=== PATIENT | male | born 1995 | race African-American/Black ===

== ENCOUNTER 2018-07-22 19:12 | Inpatient (IN) | payer MEDICAID ==
[~2018-07-22] VITALS: Ht 175.3 cm; Wt 93.9 kg
[~2018-07-22 19:12] MED LIST: ALBUTEROL SULF8.5 GM INH; AZITHROMYCIN250 MG ORAL; PREDNISONE20 MG ORAL
[2018-07-22] MEDS ORDERED: HYDROCHLOROTHIA25 MG ORAL (19:26)
[2018-07-22] MEDS ORDERED: ATORVASTATIN CA40 MG ORAL (19:26)
[2018-07-22] MEDS ORDERED: WELLBUTRIN XL150 MG ORAL (19:26)
[2018-07-22 19:30] VITALS: BP 174/107
[2018-07-22 20:21] LABS: BASOPHILS % (AUTO) 2.1 % (0.0-2.0); HEMATOCRIT 52.9 % (42.0-52.0); HEMOGLOBIN 17.9 G/DL (14.2-18.0); MEAN CORPUSCULAR VOLUME 82 FL (80-99); MONOCYTES % (AUTO) 9.3 % (1.0-10.0); NEUTROPHILS % (AUTO) 60.5 % (45.0-75.0); PLATELET COUNT 245 K/UL (150-450); RED BLOOD COUNT 6.48 M/UL (4.70-6.10); WHITE BLOOD COUNT 11.1 K/UL (4.8-10.8)
[2018-07-22 20:31] LABS: ANION GAP 7 mmol/L (5-15); BLOOD UREA NITROGEN 9 mg/dL (7-18); CALCIUM 10.4 MG/DL (8.5-10.1); CARBON DIOXIDE 32 MMOL/L (21-32); CHLORIDE 98 MMOL/L (98-107); CREATININE 1.1 MG/DL (0.55-1.30); POTASSIUM 3.3 MMOL/L (3.5-5.1); SODIUM 137 MMOL/L (136-145)
[2018-07-22 20:33] LABS: INR 1.1 (0.9-1.1)
[2018-07-22 20:37] LABS: APPEARANCE,URINE CLEAR; BILIRUBIN, URINE NEGATIVE (NEGATIVE); GLUCOSE, URINE (UA) NEGATIVE (NEGATIVE); KETONES,URINE NEGATIVE (NEGATIVE); LEUKOCYTE ESTERASE ,URINE NEGATIVE (NEGATIVE); NITRITE,URINE NEGATIVE (NEGATIVE); PH,URINE 6.5 (4.5-8.0); PROTEIN,URINE 1+ (NEGATIVE); UROBILINOGEN,URINE 1 MG/DL (0.0-1.0)
[2018-07-22 20:39] LABS: COLOR,URINE YELLOW
[2018-07-22 20:40] VITALS: BP 156/99
[2018-07-22 20:44] LABS: ALANINE AMINOTRANSFERASE 44 U/L (12-78); ALBUMIN 4.6 G/DL (3.4-5.0); ALBUMIN/GLOBULIN RATIO 0.9 (1.0-2.7); ALKALINE PHOSPHATASE 91 U/L (46-116); ASPARTATE AMINO TRANSFERASE 20 U/L (15-37); BILIRUBIN,TOTAL 0.6 MG/DL (0.2-1.0); CREATINE KINASE 159 U/L (26-308)
[2018-07-22] MEDS ORDERED: Nitroglycerin 2% oint pkt TOPIC ONE (21:00)
[2018-07-22] MEDS ORDERED: Metoprolol 5mg/5ml Inj IVP SCH (21:00)
--- NOTE | 2018-07-22 21:16 | Emergency Room Report ---
History of Present Illness General Chief Complaint: Hypertension Source: Patient Present Illness HPI Patient presents with palpitations and a strange feeling in his chest. He has a history of hypertension and is under increased stress at this time. He's taking medication and has been compliant according to him. He denies any drugs. Hypertensive medication he takes is hydrochlorothiazide. He also takes hydroxyzine and Klonopin. In addition he takes Wellbutrin. He denies dizziness. There is no orthopnea or edema. He also denies calf pain. No fevers, chills, nausea, vomiting, diarrhea, dysuria, abdominal pain, shortness of breath, visual changes, headache. Patient is on medication for his lipids. Is a family history early cardiac disease but none as young as he is. Allergies: Coded Allergies: No Known Allergies (Unverified , 05/10/14) Patient History Past Medical History: see triage record Social History: Denies: smoking, alcohol use, drug use Social History Narrative from home Reviewed Nursing Documentation: PMH: Agreed; PSxH: Agreed Nursing Documentation-PMH Hx Hypertension: Yes Hx Asthma: Yes Review of Systems All Other Systems: negative except mentioned in HPI Physical Exam Vital Signs Date Time Temp Pulse Resp B/P (MAP) Pulse Ox O2 Delivery O2 Flow Rate FiO2 07/22/18 19:21 98.4 102 12 174/107 97 Room Air Sp02 EP Interpretation: reviewed, normal General Appearance: well appearing, no apparent distress, GCS 15 Head: normocephalic Eyes: bilateral eye normal inspection, bilateral eye PERRL, bilateral eye EOMI ENT: moist mucus membranes Neck: supple Respiratory: chest non-tender, lungs clear, normal breath sounds Cardiovascular #1: regular rate, rhythm, no edema Cardiovascular #2: 2+ radial (L) Gastrointestinal: normal inspection, normal bowel sounds, non tender, no mass, non-distended Musculoskeletal: back normal, gait/station normal, normal range of motion Neurologic: alert, oriented x3, grossly normal Psychiatric: anxious Skin: normal inspection, warm/dry Medical Decision Making Diagnostic Impression: Primary Impression: Hypertension Qualified Codes: I10 - Essential (primary) hypertension Additional Impressions: Elevated troponin Anxiety ER Course Patient presents with anxiety and palpitations with chest discomfort. He denies chest pain per se. Differential includes anxiety, electrolyte imbalance , pulmonary embolus, GERD amongst others. Evaluation will be with EKG and labs. His blood pressure will be monitored and he is placed on a cardiac cath lab manager. EKG without injury. Chest x-ray with normal heart size and no infiltrates. CBC slightly elevated white count. CMP minimally low potassium. Lab called with elevated troponin. Patient treated with aspirin, metoprolol and nitroglycerin paste. Patient denies any chest pain at this time. repeat EKG with NST, rate 88, NSSTTW changes, no STEMI. Elevated troponin is surprising. Discussed possible etiologies with patient and mother. Patient with some anxiety over this news and Ativan ordered. Discussed the need for cardiology consultation. Admit to telemetry . Laboratory Tests Test 07/22/18 20:00 White Blood Count 11.1 K/UL (4.8-10.8) H Red Blood Count 6.48 M/UL (4.70-6.10) H Hemoglobin 17.9 G/DL (14.2-18.0) Hematocrit 52.9 % (42.0-52.0) H Mean Corpuscular Volume 82 FL (80-99) Mean Corpuscular Hemoglobin 27.7 PG (27.0-31.0) Mean Corpuscular Hemoglobin Concent 33.9 G/DL (32.0-36.0) Red Cell Distribution Width 11.0 % (11.6-14.8) L Platelet Count 245 K/UL (150-450) Mean Platelet Volume 8.2 FL (6.5-10.1) Neutrophils (%) (Auto) 60.5 % (45.0-75.0) Lymphocytes (%) (Auto) 27.0 % (20.0-45.0) Monocytes (%) (Auto) 9.3 % (1.0-10.0) Eosinophils (%) (Auto) 1.0 % (0.0-3.0) Basophils (%) (Auto) 2.1 % (0.0-2.0) H Prothrombin Time 11.3 SEC (9.30-11.50) Prothrombin Time INR 1.1 (0.9-1.1) PTT 30 SEC (23-33) Urine Color Yellow Urine Appearance Clear Urine pH 6.5 (4.5-8.0) Urine Specific [place] 1.010 (1.005-1.035) Urine Protein 1+ (NEGATIVE) H Urine Glucose (UA) Negative (NEGATIVE) Urine Ketones Negative (NEGATIVE) Urine Blood 2+ (NEGATIVE) H Urine Nitrite Negative (NEGATIVE) Urine Bilirubin Negative (NEGATIVE) Urine Urobilinogen 1 MG/DL (0.0-1.0) H Urine Leukocyte Esterase Negative (NEGATIVE) Urine RBC 2-4 /HPF (0 - 0) H Urine WBC 2-4 /HPF (0 - 0) Urine Squamous Epithelial Cells None /LPF (NONE/OCC) Urine Bacteria Few /HPF (NONE) Urine Yeast Few /HPF (NONE) H Sodium Level 137 MMOL/L (136-145) Potassium Level 3.3 MMOL/L (3.5-5.1) L Chloride Level 98 MMOL/L (98-107) Carbon Dioxide Level 32 MMOL/L (21-32) Anion Gap 7 mmol/L (5-15) Blood Urea Nitrogen 9 mg/dL (7-18) Creatinine 1.1 MG/DL (0.55-1.30) Estimate Glomerular Filtration Rate > 60 mL/min (>60) Glucose Level 114 MG/DL (74-106) H Calcium Level 10.4 MG/DL (8.5-10.1) H Total Bilirubin 0.6 MG/DL (0.2-1.0) Aspartate Amino Transferase (AST) 20 U/L (15-37) Alanine Aminotransferase (ALT) 44 U/L (12-78) Alkaline Phosphatase 91 U/L (46-116) Total Creatine Kinase 159 U/L (26-308) Troponin I 0.106 ng/mL (0.000-0.056) Pro-B-Type Natriuretic Peptide 5 pg/mL (0-125) Total Protein 9.5 G/DL (6.4-8.2) H Albumin 4.6 G/DL (3.4-5.0) Globulin 4.9 g/dL Albumin/Globulin Ratio 0.9 (1.0-2.7) L Urine Opiates Screen Negative (NEGATIVE) Urine Barbiturates Screen Negative (NEGATIVE) Phencyclidine (PCP) Screen Negative (NEGATIVE) Urine Amphetamines Screen Negative (NEGATIVE) Urine Benzodiazepines Screen Negative (NEGATIVE) Urine Cocaine Screen Negative (NEGATIVE) Urine Marijuana (THC) Screen Negative (NEGATIVE) EKG Diagnostic Results Rate: normal Rhythm: NSR ST Segments: no acute changes - Nonspecific ST-T wav Rhythm Strip Diag. Results EP Interpretation: yes Rhythm: NSR, other - unifocal pvcs rate Chest X-Ray Diagnostic Results Chest X-Ray Diagnostic Results : Chest X-Ray Ordered: Yes Indication: Other EP Interpretation: Yes Interpretation: no consolidation, no effusion, no pneumothorax Impression: No acute disease Electronically Signed by: Electronically signed by Juve Rodriguez MD Last Vital Signs Date Time Temp Pulse Resp B/P (MAP) Pulse Ox O2 Delivery O2 Flow Rate FiO2 07/23/18 00:00 86 07/23/18 00:00 98.6 136/70 (92) 07/22/18 23:34 Room Air 07/22/18 23:20 15 98 Status: improved Disposition: ADMITTED INPATIENT Condition: Serious Referrals: [facility],REFERRING (PCP) Juve Rodriguez MD Jul 22, 2018 21:16
[2018-07-22 22:00] VITALS: BP 134/86
[2018-07-22] MEDS ORDERED: LORazepam 1mg tab ORAL ONE (23:15)
[2018-07-23] VITALS: BP 136/70
[2018-07-23] MEDS ORDERED: Albuterol 90mcg Inhaler 8gm INH PRN (03:45)
[2018-07-23 04:00] VITALS: BP 114/63
[2018-07-23 05:47] LABS: BASOPHILS % (AUTO) 1.3 % (0.0-2.0); HEMATOCRIT 51.7 % (42.0-52.0); HEMOGLOBIN 17.4 G/DL (14.2-18.0); LYMPHOCYTES % (AUTO) 24.4 % (20.0-45.0); MEAN CORPUSCULAR VOLUME 83 FL (80-99); MONOCYTES % (AUTO) 9.1 % (1.0-10.0); NEUTROPHILS % (AUTO) 64.1 % (45.0-75.0); PLATELET COUNT 214 K/UL (150-450); RED BLOOD COUNT 6.22 M/UL (4.70-6.10); RED CELL DISTRIBUTION WIDTH 11.1 % (11.6-14.8); WHITE BLOOD COUNT 8.6 K/UL (4.8-10.8)
[2018-07-23 06:05] LABS: ALANINE AMINOTRANSFERASE 39 U/L (12-78); ALBUMIN 4.3 G/DL (3.4-5.0); ALBUMIN/GLOBULIN RATIO 0.9 (1.0-2.7); ALKALINE PHOSPHATASE 82 U/L (46-116); ANION GAP 9 mmol/L (5-15); ASPARTATE AMINO TRANSFERASE 22 U/L (15-37); BILIRUBIN,TOTAL 0.6 MG/DL (0.2-1.0); BLOOD UREA NITROGEN 8 mg/dL (7-18); CARBON DIOXIDE 32 MMOL/L (21-32); CHLORIDE 97 MMOL/L (98-107); SODIUM 137 MMOL/L (136-145)
[2018-07-23 06:06] LABS: POTASSIUM 2.6 MMOL/L (3.5-5.1)
--- NOTE | 2018-07-23 07:10 | Cardiac Electrophysiology PN ---
Subjective Subjective [id number] Objective Last 24 Hour Vital Signs Date Time Temp Pulse Resp B/P (MAP) Pulse Ox O2 Delivery O2 Flow Rate FiO2 07/23/18 04:50 97.9 07/23/18 04:00 92 07/23/18 04:00 97.9 92 114/63 (80) 07/23/18 00:00 86 07/23/18 00:00 98.6 86 136/70 (92) 07/22/18 23:34 Room Air 07/22/18 23:20 98.3 86 15 134/86 98 Room Air 07/22/18 22:00 98.3 86 15 134/86 98 Room Air 07/22/18 20:58 113 153/94 07/22/18 20:57 153/94 07/22/18 20:40 88 14 156/99 98 Room Air 07/22/18 19:30 98.4 102 12 174/107 97 Room Air 07/22/18 19:30 102 12 Room Air 07/22/18 19:21 98.4 102 12 174/107 97 Room Air Intake and Output 07/22/18 07/23/18 19:00 07:00 Intake Total 180 ml Balance 180 ml Intake Oral 180 ml # Voids 1 # Bowel Movements 1 Laboratory Tests Test 07/22/18 20:00 07/23/18 04:33 07/23/18 06:20 White Blood Count 11.1 K/UL (4.8-10.8) H 8.6 K/UL (4.8-10.8) Red Blood Count 6.48 M/UL (4.70-6.10) H 6.22 M/UL (4.70-6.10) H Hemoglobin 17.9 G/DL (14.2-18.0) 17.4 G/DL (14.2-18.0) Hematocrit 52.9 % (42.0-52.0) H 51.7 % (42.0-52.0) Mean Corpuscular Volume 82 FL (80-99) 83 FL (80-99) Mean Corpuscular Hemoglobin 27.7 PG (27.0-31.0) 28.0 PG (27.0-31.0) Mean Corpuscular Hemoglobin Concent 33.9 G/DL (32.0-36.0) 33.7 G/DL (32.0-36.0) Red Cell Distribution Width 11.0 % (11.6-14.8) L 11.1 % (11.6-14.8) L Platelet Count 245 K/UL (150-450) 214 K/UL (150-450) Mean Platelet Volume 8.2 FL (6.5-10.1) 9.5 FL (6.5-10.1) Neutrophils (%) (Auto) 60.5 % (45.0-75.0) 64.1 % (45.0-75.0) Lymphocytes (%) (Auto) 27.0 % (20.0-45.0) 24.4 % (20.0-45.0) Monocytes (%) (Auto) 9.3 % (1.0-10.0) 9.1 % (1.0-10.0) Eosinophils (%) (Auto) 1.0 % (0.0-3.0) 1.0 % (0.0-3.0) Basophils (%) (Auto) 2.1 % (0.0-2.0) H 1.3 % (0.0-2.0) Prothrombin Time 11.3 SEC (9.30-11.50) Prothromb Time International Ratio 1.1 (0.9-1.1) Activated Partial Thromboplast Time 30 SEC (23-33) Urine Color Yellow Urine Appearance Clear Urine pH 6.5 (4.5-8.0) Urine Specific [place] 1.010 (1.005-1.035) Urine Protein 1+ (NEGATIVE) H Urine Glucose (UA) Negative (NEGATIVE) Urine Ketones Negative (NEGATIVE) Urine Blood 2+ (NEGATIVE) H Urine Nitrite Negative (NEGATIVE) Urine Bilirubin Negative (NEGATIVE) Urine Urobilinogen 1 MG/DL (0.0-1.0) H Urine Leukocyte Esterase Negative (NEGATIVE) Urine RBC 2-4 /HPF (0 - 0) H Urine WBC 2-4 /HPF (0 - 0) Urine Squamous Epithelial Cells None /LPF (NONE/OCC) Urine Bacteria Few /HPF (NONE) Urine Yeast Few /HPF (NONE) H Sodium Level 137 MMOL/L (136-145) 137 MMOL/L (136-145) Potassium Level 3.3 MMOL/L (3.5-5.1) L 2.6 MMOL/L (3.5-5.1) *L 3.0 MMOL/L (3.5-5.1) L Chloride Level 98 MMOL/L (98-107) 97 MMOL/L (98-107) L Carbon Dioxide Level 32 MMOL/L (21-32) 32 MMOL/L (21-32) Anion Gap 7 mmol/L (5-15) 9 mmol/L (5-15) Blood Urea Nitrogen 9 mg/dL (7-18) 8 mg/dL (7-18) Creatinine 1.1 MG/DL (0.55-1.30) 1.0 MG/DL (0.55-1.30) Estimat Glomerular Filtration Rate > 60 mL/min (>60) > 60 mL/min (>60) Glucose Level 114 MG/DL (74-106) H 116 MG/DL (74-106) H Calcium Level 10.4 MG/DL (8.5-10.1) H 10.0 MG/DL (8.5-10.1) Total Bilirubin 0.6 MG/DL (0.2-1.0) 0.6 MG/DL (0.2-1.0) Aspartate Amino Transf (AST/SGOT) 20 U/L (15-37) 22 U/L (15-37) Alanine Aminotransferase (ALT/SGPT) 44 U/L (12-78) 39 U/L (12-78) Alkaline Phosphatase 91 U/L (46-116) 82 U/L (46-116) Total Creatine Kinase 159 U/L (26-308) Troponin I 0.106 ng/mL (0.000-0.056) 0.411 ng/mL (0.000-0.056) Pro-B-Type Natriuretic Peptide 5 pg/mL (0-125) Total Protein 9.5 G/DL (6.4-8.2) H 8.9 G/DL (6.4-8.2) H Albumin 4.6 G/DL (3.4-5.0) 4.3 G/DL (3.4-5.0) Globulin 4.9 g/dL 4.6 g/dL Albumin/Globulin Ratio 0.9 (1.0-2.7) L 0.9 (1.0-2.7) L Urine Opiates Screen Negative (NEGATIVE) Urine Barbiturates Screen Negative (NEGATIVE) Phencyclidine (PCP) Screen Negative (NEGATIVE) Urine Amphetamines Screen Negative (NEGATIVE) Urine Benzodiazepines Screen Negative (NEGATIVE) Urine Cocaine Screen Negative (NEGATIVE) Urine Marijuana (THC) Screen Negative (NEGATIVE) Microbiology Date/Time Source Procedure Growth Status 07/22/18 20:00 Urine,Clean Catch Urine Culture - Preliminary NO GROWTH Resulted Reza Shah MD July 23, 2018 07:10
[2018-07-23] MEDS ORDERED: Heparin 25,000u/D5W 500ml 500 ML IV SCH (07:30)
[2018-07-23 08:00] VITALS: BP 128/77
[2018-07-23] MEDS: Metoprolol 25mg tab ORAL SCH ×2 (08:31→20:15)
[2018-07-23] MEDS: Aspirin Baby 81mg ORAL SCH (08:32)
[2018-07-23] MEDS ORDERED: Aspirin Baby 81mg ORAL SCH (09:00)
--- NOTE | 2018-07-23 11:02 | Diagnostic Imaging Report ---
Indication: Chest pain Technique: One view of the chest Comparison: none Findings: Lungs and pleural spaces are clear. Heart size is normal Impression: No acute process
[2018-07-23 12:51] VITALS: BP 119/68
[2018-07-23] MEDS ORDERED: LORazepam 1mg tab ORAL PRN (14:00)
--- NOTE | 2018-07-23 14:54 | Diagnostic Imaging Report ---
APPROVED REPORT CPT Code: 11498 Present Symptoms Lower Extremity Edema: BILATERAL: Imaging reveals a patent deep venous system bilaterally. There is no evidence of thrombus within the common femoral, superficial femoral, popliteal or tibial segments. The greater saphenous veins are within normal limits. Doppler indicates normal spontaneous flow within these segments.
--- NOTE | 2018-07-23 15:07 | Cardiology Report ---
APPROVED REPORT EXAM: Two-dimensional and M-mode echocardiogram with Doppler and color Doppler. INDICATION Shortness of breath M-Mode DIMENSIONS IVSd1.0 (0.7-1.1cm)Left Atrium (MM)3.9 (1.6-4.0cm) LVDd4.3 (3.5-5.6cm)Aortic Root3.2 (2.0-3.7cm) PWd0.8 (0.7-1.1cm)Aortic Cusp Exc.1.8 (1.5-2.0cm) IVSs1.8 cm LVDs2.7 (2.5-4.0cm) PWs0.9 cm Normal left ventricular chamber size, systolic function and wall motion . Left ventricular ejection fraction estimated to be 60 -65%. No evidence of left ventricular hypertrophy. No evidence of pericardial effusion. All other cardiac chamber sizes are within normal limits. Focal aortic valve sclerosis with adequate cusp excursion. Thickened mitral valve leaflets with normal excursion. Mitral annulus and aortic root calcification. Normal pulmonic valve structure. Normal tricuspid valve structure. IVC at normal size with physiologic collapse. A color flow and spectral Doppler study was performed and revealed: No aortic insufficiency. Trace mitral regurgitation. Mitral inflow indicate normal left ventricular diastolic function. Trace tricuspid regurgitation. Tricuspid systolic velocities suggests peak right ventricular systolic pressure of 9 mmHg.
--- NOTE | 2018-07-23 15:46 | Consultation ---
History of Present Illness General Chief Complaint: Hypertension Present Illness Allergies: Coded Allergies: No Known Allergies (Unverified , 05/10/14) Medication History Scheduled Atorvastatin Calcium* (Atorvastatin Calcium*), 40 MG ORAL BEDTIME, (Reported) Azithromycin* (Zithromax*), 250 MG ORAL DAILY Bupropion Hcl* (Wellbutrin Xl*), 150 MG ORAL DAILY, (Reported) Hydrochlorothiazide* (Hydrochlorothiazide*), 25 MG ORAL DAILY, (Reported) Prednisone* (Prednisone*), 20 MG ORAL BID Scheduled PRN Albuterol Sulfate* (Albuterol Sulfate Mdi*), 2 PUFF INH Q4H PRN for Shortness of Breath Patient History Healthcare decision maker Resuscitation status Full Code Advanced Directive on File No Physical Exam Last 24 Hour Vital Signs Date Time Temp Pulse Resp B/P (MAP) Pulse Ox O2 Delivery O2 Flow Rate FiO2 07/23/18 12:51 98.4 78 20 119/68 (85) 97 07/23/18 11:38 81 07/23/18 09:00 Room Air 07/23/18 08:31 95 128/77 07/23/18 08:00 97.2 95 22 128/77 (94) 94 07/23/18 07:41 96 07/23/18 04:50 97.9 07/23/18 04:00 92 07/23/18 04:00 97.9 92 114/63 (80) 07/23/18 00:00 86 07/23/18 00:00 98.6 86 136/70 (92) 07/22/18 23:34 Room Air 07/22/18 23:20 98.3 86 15 134/86 98 Room Air 07/22/18 22:00 98.3 86 15 134/86 98 Room Air 07/22/18 20:58 113 153/94 07/22/18 20:57 153/94 07/22/18 20:40 88 14 156/99 98 Room Air 07/22/18 19:30 98.4 102 12 174/107 97 Room Air 07/22/18 19:30 102 12 Room Air 07/22/18 19:21 98.4 102 12 174/107 97 Room Air Intake and Output 07/22/18 07/23/18 18:59 06:59 Intake Total 180 ml Balance 180 ml Intake Oral 180 ml # Voids 1 # Bowel Movements 1 Laboratory Tests Test 07/22/18 20:00 07/23/18 04:33 07/23/18 06:20 07/23/18 11:15 White Blood Count 11.1 K/UL (4.8-10.8) H 8.6 K/UL (4.8-10.8) Red Blood Count 6.48 M/UL (4.70-6.10) H 6.22 M/UL (4.70-6.10) H Hemoglobin 17.9 G/DL (14.2-18.0) 17.4 G/DL (14.2-18.0) Hematocrit 52.9 % (42.0-52.0) H 51.7 % (42.0-52.0) Mean Corpuscular Volume 82 FL (80-99) 83 FL (80-99) Mean Corpuscular Hemoglobin 27.7 PG (27.0-31.0) 28.0 PG (27.0-31.0) Mean Corpuscular Hemoglobin Concent 33.9 G/DL (32.0-36.0) 33.7 G/DL (32.0-36.0) Red Cell Distribution Width 11.0 % (11.6-14.8) L 11.1 % (11.6-14.8) L Platelet Count 245 K/UL (150-450) 214 K/UL (150-450) Mean Platelet Volume 8.2 FL (6.5-10.1) 9.5 FL (6.5-10.1) Neutrophils (%) (Auto) 60.5 % (45.0-75.0) 64.1 % (45.0-75.0) Lymphocytes (%) (Auto) 27.0 % (20.0-45.0) 24.4 % (20.0-45.0) Monocytes (%) (Auto) 9.3 % (1.0-10.0) 9.1 % (1.0-10.0) Eosinophils (%) (Auto) 1.0 % (0.0-3.0) 1.0 % (0.0-3.0) Basophils (%) (Auto) 2.1 % (0.0-2.0) H 1.3 % (0.0-2.0) Prothrombin Time 11.3 SEC (9.30-11.50) Prothromb Time International Ratio 1.1 (0.9-1.1) Activated Partial Thromboplast Time 30 SEC (23-33) 41 SEC (23-33) H Urine Color Yellow Urine Appearance Clear Urine pH 6.5 (4.5-8.0) Urine Specific [place] 1.010 (1.005-1.035) Urine Protein 1+ (NEGATIVE) H Urine Glucose (UA) Negative (NEGATIVE) Urine Ketones Negative (NEGATIVE) Urine Blood 2+ (NEGATIVE) H Urine Nitrite Negative (NEGATIVE) Urine Bilirubin Negative (NEGATIVE) Urine Urobilinogen 1 MG/DL (0.0-1.0) H Urine Leukocyte Esterase Negative (NEGATIVE) Urine RBC 2-4 /HPF (0 - 0) H Urine WBC 2-4 /HPF (0 - 0) Urine Squamous Epithelial Cells None /LPF (NONE/OCC) Urine Bacteria Few /HPF (NONE) Urine Yeast Few /HPF (NONE) H Sodium Level 137 MMOL/L (136-145) 137 MMOL/L (136-145) Potassium Level 3.3 MMOL/L (3.5-5.1) L 2.6 MMOL/L (3.5-5.1) *L 3.0 MMOL/L (3.5-5.1) L Chloride Level 98 MMOL/L (98-107) 97 MMOL/L (98-107) L Carbon Dioxide Level 32 MMOL/L (21-32) 32 MMOL/L (21-32) Anion Gap 7 mmol/L (5-15) 9 mmol/L (5-15) Blood Urea Nitrogen 9 mg/dL (7-18) 8 mg/dL (7-18) Creatinine 1.1 MG/DL (0.55-1.30) 1.0 MG/DL (0.55-1.30) Estimat Glomerular Filtration Rate > 60 mL/min (>60) > 60 mL/min (>60) Glucose Level 114 MG/DL (74-106) H 116 MG/DL (74-106) H Calcium Level 10.4 MG/DL (8.5-10.1) H 10.0 MG/DL (8.5-10.1) Total Bilirubin 0.6 MG/DL (0.2-1.0) 0.6 MG/DL (0.2-1.0) Aspartate Amino Transf (AST/SGOT) 20 U/L (15-37) 22 U/L (15-37) Alanine Aminotransferase (ALT/SGPT) 44 U/L (12-78) 39 U/L (12-78) Alkaline Phosphatase 91 U/L (46-116) 82 U/L (46-116) Total Creatine Kinase 159 U/L (26-308) Troponin I 0.106 ng/mL (0.000-0.056) 0.411 ng/mL (0.000-0.056) 0.436 ng/mL (0.000-0.056) Pro-B-Type Natriuretic Peptide 5 pg/mL (0-125) Total Protein 9.5 G/DL (6.4-8.2) H 8.9 G/DL (6.4-8.2) H Albumin 4.6 G/DL (3.4-5.0) 4.3 G/DL (3.4-5.0) Globulin 4.9 g/dL 4.6 g/dL Albumin/Globulin Ratio 0.9 (1.0-2.7) L 0.9 (1.0-2.7) L Urine Opiates Screen Negative (NEGATIVE) Urine Barbiturates Screen Negative (NEGATIVE) Phencyclidine (PCP) Screen Negative (NEGATIVE) Urine Amphetamines Screen Negative (NEGATIVE) Urine Benzodiazepines Screen Negative (NEGATIVE) Urine Cocaine Screen Negative (NEGATIVE) Urine Marijuana (THC) Screen Negative (NEGATIVE) D-Dimer < 0.19 mg/L FEU Microbiology Date/Time Source Procedure Growth Status 07/22/18 20:00 Urine,Clean Catch Urine Culture - Preliminary NO GROWTH Resulted Height (Feet): 5 Height (Inches): 9.00 Weight (Pounds): 207 Medications Current Medications Medications (Trade) Dose Ordered Sig/Eloisa Route PRN Reason Start Time Stop Time Status Last Admin Dose Admin Acetaminophen (Tylenol) 650 mg Q4H PRN ORAL Mild Pain/Temp > 100.5 07/23/18 03:45 08/22/18 03:44 07/23/18 08:32 Albuterol Sulfate (Proventil MDI) 2 puff Q4HRT PRN INH Shortness of Breath 07/23/18 03:45 08/22/18 03:44 Aspirin (ASA) 81 mg DAILY ORAL 07/23/18 09:00 08/22/18 08:59 07/23/18 08:32 Atorvastatin Calcium (Lipitor) 40 mg BEDTIME ORAL 07/23/18 21:00 08/22/18 20:59 Heparin Sodium (Porcine) (Heparin 5000 units/ml) 5,000 units EVERY 12 HOURS SUBQ 07/23/18 21:00 08/22/18 20:59 Lorazepam (Ativan) 1 mg Q6H PRN ORAL For Anxiety 07/23/18 14:00 07/30/18 13:59 Metoprolol Tartrate (Lopressor) 25 mg EVERY 12 HOURS ORAL 07/23/18 09:00 08/22/18 08:59 07/23/18 08:31 Potassium Chloride (K-Dur) 40 meq Q4H ORAL 07/23/18 08:00 07/23/18 16:01 07/23/18 12:32 Assessment/Plan Assessment/Plan: Hematology Consultation DOS: 07/23/18 RFC: erythrocytosis and coagulopathy REQ MD: Laurie Gonzales HPI 22y old male presents with palpitations and a strange feeling in his chest. He has a history of hypertension and is under increased stress at this time. He 's taking medication and has been compliant according to him. He denies any drugs. Hypertensive medication he takes is hydrochlorothiazide. He also takes hydroxyzine and Klonopin. In addition he takes Wellbutrin. He denies dizziness. There is no orthopnea or edema. He also denies calf pain. No fevers , chills, nausea, vomiting, diarrhea, dysuria, abdominal pain, shortness of breath, visual changes, headache. Patient is on medication for his lipids. Is a family history early cardiac disease but none as young as he is. [facility] consulted to eval for coagulopathy and a high hgb Allergies: No Known Allergies (Unverified , 05/10/14) Past Medical History: see triage record Social History: Denies: smoking, alcohol use, drug use Social History Narrative from home Reviewed Nursing Documentation: PMH: Agreed; PSxH: Agreed Hx Hypertension: Yes Hx Asthma: Yes Review of Systems: negative except mentioned in HPI Vital Signs Date Time Temp Pulse Resp B/P (MAP) Pulse Ox O2 Delivery O2 Flow Rate FiO2 07/22/18 19:21 98.4 102 12 174/107 97 Room Air Vitals: reviewed, normal General: well appearing, no apparent distress, GCS 15 Head: normocephalic Eyes: bilateral eye normal inspection, bilateral eye PERRL, bilateral eye EOMI ENT: moist mucus membranes Neck: supple Respiratory: chest non-tender, lungs clear, normal breath sounds Cardiovascular: regular rate, rhythm, no edema Gastrointestinal: normal inspection, normal bowel sounds, nt Musculoskeletal: back normal, gait/station normal, nml rom Neurologic: alert, oriented x3, grossly noral Psychiatric: anxious Skin: normal inspection, warm/dry Current Medications Medications (Trade) Dose Ordered Sig/Eloisa Route PRN Reason Start Time Stop Time Status Last Admin Dose Admin Acetaminophen (Tylenol) 650 mg Q4H PRN ORAL Mild Pain/Temp > 100.5 07/23/18 03:45 08/22/18 03:44 07/23/18 08:32 Albuterol Sulfate (Proventil MDI) 2 puff Q4HRT PRN INH Shortness of Breath 07/23/18 03:45 08/22/18 03:44 Aspirin (ASA) 81 mg DAILY ORAL 07/23/18 09:00 08/22/18 08:59 07/23/18 08:32 Atorvastatin Calcium (Lipitor) 40 mg BEDTIME ORAL 07/23/18 21:00 08/22/18 20:59 Heparin Sodium (Porcine) (Heparin 5000 units/ml) 5,000 units EVERY 12 HOURS SUBQ 07/23/18 21:00 08/22/18 20:59 Lorazepam (Ativan) 1 mg Q6H PRN ORAL For Anxiety 07/23/18 14:00 07/30/18 13:59 Metoprolol Tartrate (Lopressor) 25 mg EVERY 12 HOURS ORAL 07/23/18 09:00 08/22/18 08:59 07/23/18 08:31 Potassium Chloride (K-Dur) 40 meq Q4H ORAL 07/23/18 08:00 07/23/18 16:01 07/23/18 12:32 Laboratory Tests Test 07/22/18 20:00 07/23/18 04:33 07/23/18 06:20 07/23/18 11:15 White Blood Count 11.1 K/UL (4.8-10.8) H 8.6 K/UL (4.8-10.8) Red Blood Count 6.48 M/UL (4.70-6.10) H 6.22 M/UL (4.70-6.10) H Hemoglobin 17.9 G/DL (14.2-18.0) 17.4 G/DL (14.2-18.0) Hematocrit 52.9 % (42.0-52.0) H 51.7 % (42.0-52.0) Mean Corpuscular Volume 82 FL (80-99) 83 FL (80-99) Mean Corpuscular Hemoglobin 27.7 PG (27.0-31.0) 28.0 PG (27.0-31.0) Mean Corpuscular Hemoglobin Concent 33.9 G/DL (32.0-36.0) 33.7 G/DL (32.0-36.0) Red Cell Distribution Width 11.0 % (11.6-14.8) L 11.1 % (11.6-14.8) L Platelet Count 245 K/UL (150-450) 214 K/UL (150-450) Mean Platelet Volume 8.2 FL (6.5-10.1) 9.5 FL (6.5-10.1) Neutrophils (%) (Auto) 60.5 % (45.0-75.0) 64.1 % (45.0-75.0) Lymphocytes (%) (Auto) 27.0 % (20.0-45.0) 24.4 % (20.0-45.0) Monocytes (%) (Auto) 9.3 % (1.0-10.0) 9.1 % (1.0-10.0) Eosinophils (%) (Auto) 1.0 % (0.0-3.0) 1.0 % (0.0-3.0) Basophils (%) (Auto) 2.1 % (0.0-2.0) H 1.3 % (0.0-2.0) Prothrombin Time 11.3 SEC (9.30-11.50) Prothromb Time International Ratio 1.1 (0.9-1.1) Activated Partial Thromboplast Time 30 SEC (23-33) 41 SEC (23-33) H Urine Color Yellow Urine Appearance Clear Urine pH 6.5 (4.5-8.0) Urine Specific [place] 1.010 (1.005-1.035) Urine Protein 1+ (NEGATIVE) H Urine Glucose (UA) Negative (NEGATIVE) Urine Ketones Negative (NEGATIVE) Urine Blood 2+ (NEGATIVE) H Urine Nitrite Negative (NEGATIVE) Urine Bilirubin Negative (NEGATIVE) Urine Urobilinogen 1 MG/DL (0.0-1.0) H Urine Leukocyte Esterase Negative (NEGATIVE) Urine RBC 2-4 /HPF (0 - 0) H Urine WBC 2-4 /HPF (0 - 0) Urine Squamous Epithelial Cells None /LPF (NONE/OCC) Urine Bacteria Few /HPF (NONE) Urine Yeast Few /HPF (NONE) H Sodium Level 137 MMOL/L (136-145) 137 MMOL/L (136-145) Potassium Level 3.3 MMOL/L (3.5-5.1) L 2.6 MMOL/L (3.5-5.1) *L 3.0 MMOL/L (3.5-5.1) L Chloride Level 98 MMOL/L (98-107) 97 MMOL/L (98-107) L Carbon Dioxide Level 32 MMOL/L (21-32) 32 MMOL/L (21-32) Anion Gap 7 mmol/L (5-15) 9 mmol/L (5-15) Blood Urea Nitrogen 9 mg/dL (7-18) 8 mg/dL (7-18) Creatinine 1.1 MG/DL (0.55-1.30) 1.0 MG/DL (0.55-1.30) Estimat Glomerular Filtration Rate > 60 mL/min (>60) > 60 mL/min (>60) Glucose Level 114 MG/DL (74-106) H 116 MG/DL (74-106) H Calcium Level 10.4 MG/DL (8.5-10.1) H 10.0 MG/DL (8.5-10.1) Total Bilirubin 0.6 MG/DL (0.2-1.0) 0.6 MG/DL (0.2-1.0) Aspartate Amino Transf (AST/SGOT) 20 U/L (15-37) 22 U/L (15-37) Alanine Aminotransferase (ALT/SGPT) 44 U/L (12-78) 39 U/L (12-78) Alkaline Phosphatase 91 U/L (46-116) 82 U/L (46-116) Total Creatine Kinase 159 U/L (26-308) Troponin I 0.106 ng/mL (0.000-0.056) 0.411 ng/mL (0.000-0.056) 0.436 ng/mL (0.000-0.056) Pro-B-Type Natriuretic Peptide 5 pg/mL (0-125) Total Protein 9.5 G/DL (6.4-8.2) H 8.9 G/DL (6.4-8.2) H Albumin 4.6 G/DL (3.4-5.0) 4.3 G/DL (3.4-5.0) Globulin 4.9 g/dL 4.6 g/dL Albumin/Globulin Ratio 0.9 (1.0-2.7) L 0.9 (1.0-2.7) L Urine Opiates Screen Negative (NEGATIVE) Urine Barbiturates Screen Negative (NEGATIVE) Phencyclidine (PCP) Screen Negative (NEGATIVE) Urine Amphetamines Screen Negative (NEGATIVE) Urine Benzodiazepines Screen Negative (NEGATIVE) Urine Cocaine Screen Negative (NEGATIVE) Urine Marijuana (THC) Screen Negative (NEGATIVE) D-Dimer < 0.19 mg/L FEU Assessment and recs: # Erythrocytosis is likely related to dehydration, elevated hgb should resolve with ivf --> ivf have been started along with heparin gtt for nstemi --> erythropoietin has been ordered # Leukocytosis is likely related to underlying infection --> smear peripheral has been ordered # Hyperproteinemia also related to likely dehydration --> ivf have been started # Hypertension --> bp meds started to maintain sbp <140 # Hypokalemia and k is as low as 2.6 --> have started on Kcl supplementation as per renal # Elevated troponin --> as per cardiology eval, trend asneeded --> ekg to be completed as well # Anxiety The timing of this note does not necessarily reflect the time of the patient was seen. Greatly appreciate consultation! Sunny Wei MD July 23, 2018 15:46
[2018-07-23 16:00] VITALS: BP 127/65
--- NOTE | 2018-07-23 16:46 | Consultation ---
Consult Note Consult Note Patient presents with palpitations and a strange feeling in his chest. He has a history of hypertension and is under increased stress at this time. He's taking medication and has been compliant according to him. He denies any drugs. Hypertensive medication he takes is hydrochlorothiazide. He also takes hydroxyzine and Klonopin. In addition he takes Wellbutrin. He denies dizziness. There is no orthopnea or edema. He also denies calf pain. No fevers, chills, nausea, vomiting, diarrhea, dysuria, abdominal pain, shortness of breath, visual changes, headache. asked to eval by Dr maher Patient is on medication for his lipids. Is a family history early cardiac disease but none as young as he is. No Known Allergies (Unverified , 05/10/14) Hx Hypertension: Yes Hx Asthma: Yes interviewed examined Assessment/Plan HypoKalemia Elevated troponin HTN Asthma PO K Per cardio keep BP in check Tommie Jackson MD July 23, 2018 16:46
--- NOTE | 2018-07-23 18:45 | Consultation ---
DATE OF CONSULTATION: 07/23/2018 NOTE: "POOR AUDIO QUALITY" CARDIOLOGY CONSULTATION CONSULTING PHYSICIAN: Reza Shah M.D. REFERRING PHYSICIAN: Laurie Gonzales M.D. REASON FOR CONSULTATION: Elevated troponin and hypertension. HISTORY OF PRESENT ILLNESS: The patient is a 22-year-old gentleman with history of hypertension, hyperlipidemia, and asthma. He came to the emergency room complaining of palpitation, strange feeling in the chest. The patient also has history of hypertension and hyperlipidemia and takes medications for that. The patient's EKG was normal, however, blood pressure was 174/107. The patient's initial troponin was mildly elevated at 0.106 and subsequent one was 0.411. At the time of my evaluation, the patient is feeling better. REVIEW OF SYSTEMS: Negative other than what was mentioned in the history of present illness. PAST MEDICAL HISTORY: As mentioned above. FAMILY HISTORY: Noncontributory. SOCIAL HISTORY: Denies smoking, drinking alcohol, or using any drugs. PHYSICAL EXAMINATION: VITAL SIGNS: Blood pressure 147/63, pulse 92, respirations 18, and temperature 98. HEAD AND NECK: Showed no JVD or carotid bruits. LUNGS: Clear. CARDIOVASCULAR: Shows regular S1 and S2 with no gallop or murmur. ABDOMEN: Soft. EXTREMITIES: No pitting edema. LABORATORY AND DIAGNOSTIC DATA: EKG showed normal sinus rhythm, normal electrocardiogram. Labs show sodium 137, potassium was 2.6 and repeat one was 3, BUN 8, creatinine 1, glucose 116. Troponin is 0.106 and 0.411. ASSESSMENT AND PLAN: 1. Possible [id number] myocardial infarction and elevated troponin. This is unusual as the CPK is normal and the EKG is normal. Urine toxicology screen was also negative. I will put the patient on aspirin, beta-sandy, and statin until further troponins are available. We will repeat the echocardiogram. The patient has no prior coronary artery disease and should be scheduled for a stress test with an echocardiogram as troponins are coming down. 2. Hypertension. Start Lopressor 25 mg b.i.d. 3. Hyperlipidemia, on Lipitor. 4. Tremor in the hands and feet. The patient was on Klonopin and also Wellbutrin. Likely due to anxiety. 5. It was also found that the patient also has severe hypokalemia that replaced. Thank you very much for allowing me to participate in the care of this patient. Please do not hesitate to contact me for any questions regarding my evaluation. Reza Shah M.D. DR: CASANDRA JOB#: [id number] CC:
[2018-07-23 20:00] VITALS: BP 117/76
[2018-07-23] MEDS: Heparin 5000 units/ml inj SUBQ SCH (20:14)
[2018-07-23] MEDS: Atorvastatin 20mg tab ORAL SCH (20:16)
--- NOTE | 2018-07-23 23:03 | Initial Psychiatric Evaluation ---
Psychiatry Consultation Psychiatry Consultation Chief Complaint: Hypertension History of Present Illness: 22-year-old man with history of anxiety, hypertension, hyperlipidemia, and asthma. He came to the emergency room complaining of palpitation, strange feeling in the chest. the pt received Ativan the night before and felt much improved. the pt was anxious and weak. he also co insomnia. the pt is not endorsing any depressive sxs no si Allergies: Coded Allergies: No Known Allergies (Unverified , 05/10/14) Past Psychiatric History: none Medical History: asthma Substance Abuse History: none Medication History Scheduled Atorvastatin Calcium* (Atorvastatin Calcium*), 40 MG ORAL BEDTIME, (Reported) Azithromycin* (Zithromax*), 250 MG ORAL DAILY Bupropion Hcl* (Wellbutrin Xl*), 150 MG ORAL DAILY, (Reported) Hydrochlorothiazide* (Hydrochlorothiazide*), 25 MG ORAL DAILY, (Reported) Prednisone* (Prednisone*), 20 MG ORAL BID Scheduled PRN Albuterol Sulfate* (Albuterol Sulfate Mdi*), 2 PUFF INH Q4H PRN for Shortness of Breath Patient History History Provided By: Patient, Family Member, Medical Record, PMD Objective Data Height (Feet): 5 Height (Inches): 9.00 Weight (Pounds): 207 Appearance: well groomed Behavior Mannerisms: good eye contact Affect: constricted Mood: anxious Thought Process: logical, goal-directed Suicidal Ideation: not present Assessment/Plan Status: stable Assessment/Plan: ativan prn was ordered provided aristides garcia mother Diagnosis [place] I: anxiety Benjy Adam MD July 23, 2018 23:03
[2018-07-24] VITALS: BP 110/57
--- NOTE | 2018-07-24 02:00 | History and Physical Report ---
DATE OF ADMISSION: 07/22/2018 HISTORY OF PRESENT ILLNESS: The patient is admitted for positive troponin and low potassium. The patient has history of hypertension. The patient also complained of chest pain for 2 weeks. It is intermittent pain. The patient also has history of hyperlipidemia, hypertension, asthma. Admitted to rule out acute coronary syndrome. The patient has positive troponin. Denies orthopnea. Denies nausea, vomiting, or diarrhea. Denies fever or chills. Denies shortness of breath. Denies cough. PAST MEDICAL HISTORY: Depression, hyperlipidemia, hypertension, asthma. PAST SURGICAL HISTORY: None. ALLERGIES: None. MEDICATIONS: Lipitor, Wellbutrin, hydrochlorothiazide. FAMILY HISTORY: Does have history of heart disease. SOCIAL HISTORY: The patient denies history of smoking, alcohol, or illicit drugs. REVIEW OF SYSTEMS: HEENT: Denies headaches. RESPIRATORY: Denies shortness of breath. Denies cough. CARDIOVASCULAR: Does have chest pain for 2 weeks and does not radiate. Not associated with anything. Denies orthopnea. GASTROINTESTINAL: Denies nausea, vomiting, or diarrhea. EXTREMITIES: Denies pain. CENTRAL NERVOUS SYSTEM: No change in vision or speech pattern. PHYSICAL EXAMINATION: VITAL SIGNS: Temperature is 98.4, pulse is 78, and blood pressure is 119/60. HEENT: PERRLA. NECK: Supple. No lymphadenopathy. CHEST: Clear to auscultation. CARDIOVASCULAR: Regular rate and rhythm. No murmurs or extra sounds. GASTROINTESTINAL: Soft, nontender, nondistended. No organomegaly. EXTREMITIES: No edema. Moves all four extremities. NEUROLOGIC: Sensory is intact to light touch. Reflexes equal on both sides LABORATORY DATA: WBC of 11.1, hemoglobin 17.9, and platelets of 245. Potassium of 4. Troponin of 0.411. EKG, there is no ST elevation. ASSESSMENT AND PLAN: 1. Elevated troponin, rule out DE. 2. Chest pain. 3. Electrolyte imbalance, low potassium, elevated hemoglobin as well Again, we need to rule out acute coronary syndrome. The positive troponin is symptomatic. I have asked Dr. Cordon, Dr. Sunny Wei, Dr. Shah, and Dr. Jackson to see the patient for the management of low potassium and chest pain and positive troponin as well as for the management of elevated hemoglobin and for continuation of the medications for depression. Ali Clarisa Gonzales DR: YASMEEN JOB#: [id number] CC:
[2018-07-24 03:31] LABS: BASOPHILS % (AUTO) 1.3 % (0.0-2.0); EOSINOPHILS % (AUTO) 1.5 % (0.0-3.0); HEMATOCRIT 51.4 % (42.0-52.0); HEMOGLOBIN 17.3 G/DL (14.2-18.0); LYMPHOCYTES % (AUTO) 31.8 % (20.0-45.0); MEAN CORPUSCULAR VOLUME 83 FL (80-99); MONOCYTES % (AUTO) 9.1 % (1.0-10.0); NEUTROPHILS % (AUTO) 56.3 % (45.0-75.0); PLATELET COUNT 211 K/UL (150-450); RED BLOOD COUNT 6.18 M/UL (4.70-6.10); RED CELL DISTRIBUTION WIDTH 11.1 % (11.6-14.8); WHITE BLOOD COUNT 7.3 K/UL (4.8-10.8)
[2018-07-24 03:59] LABS: ALANINE AMINOTRANSFERASE 33 U/L (12-78); ALBUMIN 3.9 G/DL (3.4-5.0); ALBUMIN/GLOBULIN RATIO 0.9 (1.0-2.7); ALKALINE PHOSPHATASE 74 U/L (46-116); ANION GAP 7 mmol/L (5-15); ASPARTATE AMINO TRANSFERASE 24 U/L (15-37); BILIRUBIN,TOTAL 0.8 MG/DL (0.2-1.0); BLOOD UREA NITROGEN 10 mg/dL (7-18); CALCIUM 9.3 MG/DL (8.5-10.1); CARBON DIOXIDE 30 MMOL/L (21-32); CHLORIDE 100 MMOL/L (98-107); CHOLESTEROL 184 MG/DL (< 200); CREATININE 1.1 MG/DL (0.55-1.30); HDL CHOLESTEROL 36 MG/DL (40-60); SODIUM 137 MMOL/L (136-145); TRIGLYCERIDES 52 MG/DL (30-150)
[2018-07-24 04:00] VITALS: BP 121/64
[2018-07-24 08:00] VITALS: BP 125/73
[2018-07-24] MEDS: Aspirin Baby 81mg ORAL SCH (08:11)
[2018-07-24] MEDS: Metoprolol 25mg tab ORAL SCH ×2 (08:11→21:00)
[2018-07-24] MEDS: Heparin 5000 units/ml inj SUBQ SCH ×2 (08:13→21:03)
[2018-07-24 12:00] VITALS: BP 136/83
[2018-07-24] MEDS ORDERED: Allopurinol 100mg Tab ORAL SCH (12:17)
--- NOTE | 2018-07-24 12:20 | Nephrology Progress Note ---
Assessment/Plan Problem List: (1) Elevated troponin (2) Hypertension (3) Hyperuricemia Assessment HypoKalemia Elevated troponin HTN Asthma Plan PO K- Per cardio- keep BP in check- add allopurinol for hyperuricemia Subjective ROS Limited/Unobtainable: No Objective Objective Last 24 Hour Vital Signs Date Time Temp Pulse Resp B/P (MAP) Pulse Ox O2 Delivery O2 Flow Rate FiO2 07/24/18 09:00 Room Air 07/24/18 08:11 77 125/73 07/24/18 08:00 77 07/24/18 08:00 98.6 77 14 125/73 (90) 99 07/24/18 04:00 75 07/24/18 04:00 98.1 75 14 121/64 (83) 99 07/24/18 00:00 69 07/24/18 00:00 98.5 67 16 110/57 (74) 100 07/23/18 21:00 Room Air 07/23/18 20:15 72 117/76 07/23/18 20:00 98.1 72 17 117/76 (90) 99 07/23/18 20:00 78 07/23/18 16:00 98.4 71 20 127/65 (85) 96 07/23/18 15:58 68 07/23/18 12:51 98.4 78 20 119/68 (85) 97 Intake and Output 07/23/18 07/24/18 18:59 06:59 Intake Total 330.140 ml Output Total 340 ml Balance -9.860 ml Intake Oral 240 ml IV Total 90.140 ml Output Urine Total 340 ml # Voids 3 Laboratory Tests 07/23/18 18:50: Erythropoietin 7.2, Troponin I 0.294H 07/24/18 03:10: Troponin I 0.232H, White Blood Count 7.3, Red Blood Count 6.18H, Hemoglobin 17.3 , Hematocrit 51.4, Mean Corpuscular Volume 83, Mean Corpuscular Hemoglobin 28.0 , Mean Corpuscular Hemoglobin Concent 33.6, Red Cell Distribution Width 11.1L, Platelet Count 211, Mean Platelet Volume 9.9, Neutrophils (%) (Auto) 56.3, Lymphocytes (%) (Auto) 31.8, Monocytes (%) (Auto) 9.1, Eosinophils (%) (Auto) 1.5, Basophils (%) (Auto) 1.3, Sodium Level 137, Potassium Level 4.0, Chloride Level 100, Carbon Dioxide Level 30, Anion Gap 7, Blood Urea Nitrogen 10, Creatinine 1.1, Estimat Glomerular Filtration Rate > 60, Glucose Level 95, Hemoglobin A1c 5.6, Uric Acid 8.1H, Calcium Level 9.3, Phosphorus Level 3.0, Magnesium Level 1.9, Ferritin 228, Total Bilirubin 0.8, Gamma Glutamyl Transpeptidase 11, Aspartate Amino Transf (AST/SGOT) 24, Alanine Aminotransferase (ALT/SGPT) 33, Alkaline Phosphatase 74, C-Reactive Protein, Quantitative 2.6H, Total Protein 8.2, Albumin 3.9, Globulin 4.3, Albumin/ Globulin Ratio 0.9L, Triglycerides Level 52, Cholesterol Level 184, LDL Cholesterol 135H, HDL Cholesterol 36L, Cholesterol/HDL Ratio 5.1H, Vitamin B12 Level 413, Folate 8.8, Thyroid Stimulating Hormone (TSH) 0.459 Height (Feet): 5 Height (Inches): 9.00 Weight (Pounds): 207 General Appearance: no apparent distress Objective no change Tommie Jackson MD July 24, 2018 12:20
--- NOTE | 2018-07-24 13:37 | General Progress Note ---
Assessment/Plan Status: stable Assessment/Plan: Assessment and recs: # Erythrocytosis is likely related to dehydration, elevated hgb should resolve with ivf --> ivf have been started along with heparin gtt for nstemi --> erythropoietin is 7.2 --> hgb trending between 16-17 # Leukocytosis is likely related to underlying infection --> smear peripheral reviewed, no schistocytes --> trend wbc 11-->7.3 # Hyperproteinemia also related to likely dehydration --> ivf to continue # Hypertension --> bp meds started to maintain sbp <140 # Hypokalemia and k is as low as 2.6 --> have started on Kcl supplementation as per renal # Elevated troponin --> as per cardiology eval, trend asneeded --> ekg to be completed as well # Anxiety The timing of this note does not necessarily reflect the time of the patient was seen. Greatly appreciate consultation! Subjective Constitutional: Denies: no symptoms, chills, diaphoresis, fever, malaise, weakness, other HEENT: Denies: no symptoms, eye pain, blurred vision, tearing, double vision, ear pain, ear discharge, nose pain, nose congestion, throat pain, throat swelling, mouth pain, mouth swelling, other Cardiovascular: Denies: no symptoms, chest pain, edema, irregular heart rate, lightheadedness, palpitations, syncope, other Respiratory: Denies: no symptoms, cough, orthopnea, shortness of breath, SOB with excertion, SOB at rest, sputum, stridor, wheezing, other Gastrointestinal/Abdominal: Denies: no symptoms, abdomen distended, abdominal pain, black stools, tarry stools, blood in stool, constipated, diarrhea, difficulty swallowing, nausea, poor appetite, poor fluid intake, rectal bleeding , vomiting, other Genitourinary: Denies: no symptoms, burning, discharge, frequency, flank pain, hematuria, incontinence, pain, urgency, other Neurologic/Psychiatric: Denies: no symptoms, anxiety, depressed, emotional problems, headache, numbness, paresthesia, pre-existing deficit, seizure, tingling, tremors, weakness, other Endocrine: Denies: no symptoms, excessive sweating, flushing, intolerance to cold, intolerance to heat, increased hunger, increased thirst, increased urine, unexplained weight gain, unexplained weight loss, other Allergies: Coded Allergies: No Known Allergies (Unverified , 05/10/14) Subjective 07/24: no events, no fevers or chills, hgb remains elevated Objective Last 24 Hour Vital Signs Date Time Temp Pulse Resp B/P (MAP) Pulse Ox O2 Delivery O2 Flow Rate FiO2 07/24/18 12:00 98.7 77 18 136/83 (100) 99 77 07/24/18 09:00 Room Air 07/24/18 08:11 77 125/73 07/24/18 08:00 77 07/24/18 08:00 98.6 77 14 125/73 (90) 99 07/24/18 04:00 75 07/24/18 04:00 98.1 75 14 121/64 (83) 99 07/24/18 00:00 69 07/24/18 00:00 98.5 67 16 110/57 (74) 100 07/23/18 21:00 Room Air 07/23/18 20:15 72 117/76 07/23/18 20:00 98.1 72 17 117/76 (90) 99 07/23/18 20:00 78 07/23/18 16:00 98.4 71 20 127/65 (85) 96 07/23/18 15:58 68 Intake and Output 07/23/18 07/24/18 18:59 06:59 Intake Total 330.140 ml Output Total 340 ml Balance -9.860 ml Intake Oral 240 ml IV Total 90.140 ml Output Urine Total 340 ml # Voids 3 Laboratory Tests 07/23/18 18:50: Erythropoietin 7.2, Troponin I 0.294H 07/24/18 03:10: Troponin I 0.232H, White Blood Count 7.3, Red Blood Count 6.18H, Hemoglobin 17.3 , Hematocrit 51.4, Mean Corpuscular Volume 83, Mean Corpuscular Hemoglobin 28.0 , Mean Corpuscular Hemoglobin Concent 33.6, Red Cell Distribution Width 11.1L, Platelet Count 211, Mean Platelet Volume 9.9, Neutrophils (%) (Auto) 56.3, Lymphocytes (%) (Auto) 31.8, Monocytes (%) (Auto) 9.1, Eosinophils (%) (Auto) 1.5, Basophils (%) (Auto) 1.3, Sodium Level 137, Potassium Level 4.0, Chloride Level 100, Carbon Dioxide Level 30, Anion Gap 7, Blood Urea Nitrogen 10, Creatinine 1.1, Estimat Glomerular Filtration Rate > 60, Glucose Level 95, Hemoglobin A1c 5.6, Uric Acid 8.1H, Calcium Level 9.3, Phosphorus Level 3.0, Magnesium Level 1.9, Ferritin 228, Total Bilirubin 0.8, Gamma Glutamyl Transpeptidase 11, Aspartate Amino Transf (AST/SGOT) 24, Alanine Aminotransferase (ALT/SGPT) 33, Alkaline Phosphatase 74, C-Reactive Protein, Quantitative 2.6H, Total Protein 8.2, Albumin 3.9, Globulin 4.3, Albumin/ Globulin Ratio 0.9L, Triglycerides Level 52, Cholesterol Level 184, LDL Cholesterol 135H, HDL Cholesterol 36L, Cholesterol/HDL Ratio 5.1H, Vitamin B12 Level 413, Folate 8.8, Thyroid Stimulating Hormone (TSH) 0.459 Height (Feet): 5 Height (Inches): 9.00 Weight (Pounds): 207 Objective General: well appearing, no apparent distress, GCS 15 Head: normocephalic Eyes: bilateral eye normal inspection, bilateral eye PERRL, bilateral eye EOMI ENT: moist mucus membranes Neck: supple Respiratory: chest non-tender, lungs clear, normal breath sounds Cardiovascular: regular rate, rhythm, no edema Gastrointestinal: normal inspection, normal bowel sounds, nt Musculoskeletal: back normal, gait/station normal, nml rom Neurologic: alert, oriented x3, grossly noral Psychiatric: anxious Skin: normal inspection, warm/dry Sunny Wei MD July 24, 2018 13:37
--- NOTE | 2018-07-24 14:21 | Cardiology Report ---
APPROVED REPORT EKG Measurement Heart [id number] Normal sinus rhythm Normal ECG
--- NOTE | 2018-07-24 14:25 | Cardiology Report ---
APPROVED REPORT EKG Measurement Heart [id number] [place] 128P74 [id number] Normal sinus rhythm Voltage criteria for left ventricular hypertrophy Abnormal ECG
[2018-07-24 16:00] VITALS: BP 129/84
--- NOTE | 2018-07-24 16:10 | Cardiac Electrophysiology PN ---
Assessment/Plan Assessment/Plan 1. Possible [id number]-[id number] myocardial infarction and elevated troponin. This is unusual as the CPK is normal and the EKG is normal. Urine toxicology screen was also negative. On aspirin, beta-sandy, and statin. Echocardiogram showed Nl EF. The patient has no prior coronary artery disease and will schedule for a stress test 2. Hypertension. On Lopressor 25 mg b.i.d. 3. Hyperlipidemia, on Lipitor. 4. Tremor in the hands and feet. The patient was on Klonopin and also Wellbutrin. Likely due to anxiety. 5. Severe hypokalemia, replaced Subjective Subjective No CP or SOB. Objective Last 24 Hour Vital Signs Date Time Temp Pulse Resp B/P (MAP) Pulse Ox O2 Delivery O2 Flow Rate FiO2 07/24/18 12:00 98.7 77 18 136/83 (100) 99 77 07/24/18 12:00 69 07/24/18 09:00 Room Air 07/24/18 08:11 77 125/73 07/24/18 08:00 77 07/24/18 08:00 98.6 77 14 125/73 (90) 99 07/24/18 04:00 75 07/24/18 04:00 98.1 75 14 121/64 (83) 99 07/24/18 00:00 69 07/24/18 00:00 98.5 67 16 110/57 (74) 100 07/23/18 21:00 Room Air 07/23/18 20:15 72 117/76 07/23/18 20:00 98.1 72 17 117/76 (90) 99 07/23/18 20:00 78 Intake and Output 07/23/18 07/24/18 18:59 06:59 Intake Total 330.140 ml Output Total 340 ml Balance -9.860 ml Intake Oral 240 ml IV Total 90.140 ml Output Urine Total 340 ml # Voids 3 Laboratory Tests Test 07/23/18 18:50 07/24/18 03:10 Erythropoietin 7.2 mIU/mL (2.6-18.5) Troponin I 0.294 ng/mL (0.000-0.056) 0.232 ng/mL (0.000-0.056) White Blood Count 7.3 K/UL (4.8-10.8) Red Blood Count 6.18 M/UL (4.70-6.10) H Hemoglobin 17.3 G/DL (14.2-18.0) Hematocrit 51.4 % (42.0-52.0) Mean Corpuscular Volume 83 FL (80-99) Mean Corpuscular Hemoglobin 28.0 PG (27.0-31.0) Mean Corpuscular Hemoglobin Concent 33.6 G/DL (32.0-36.0) Red Cell Distribution Width 11.1 % (11.6-14.8) L Platelet Count 211 K/UL (150-450) Mean Platelet Volume 9.9 FL (6.5-10.1) Neutrophils (%) (Auto) 56.3 % (45.0-75.0) Lymphocytes (%) (Auto) 31.8 % (20.0-45.0) Monocytes (%) (Auto) 9.1 % (1.0-10.0) Eosinophils (%) (Auto) 1.5 % (0.0-3.0) Basophils (%) (Auto) 1.3 % (0.0-2.0) Sodium Level 137 MMOL/L (136-145) Potassium Level 4.0 MMOL/L (3.5-5.1) Chloride Level 100 MMOL/L (98-107) Carbon Dioxide Level 30 MMOL/L (21-32) Anion Gap 7 mmol/L (5-15) Blood Urea Nitrogen 10 mg/dL (7-18) Creatinine 1.1 MG/DL (0.55-1.30) Estimat Glomerular Filtration Rate > 60 mL/min (>60) Glucose Level 95 MG/DL (74-106) Hemoglobin A1c 5.6 % (4.3-6.0) Uric Acid 8.1 MG/DL (2.6-7.2) H Calcium Level 9.3 MG/DL (8.5-10.1) Phosphorus Level 3.0 MG/DL (2.5-4.9) Magnesium Level 1.9 MG/DL (1.8-2.4) Ferritin 228 NG/ML (8-388) Total Bilirubin 0.8 MG/DL (0.2-1.0) Gamma Glutamyl Transpeptidase 11 U/L (5-85) Aspartate Amino Transf (AST/SGOT) 24 U/L (15-37) Alanine Aminotransferase (ALT/SGPT) 33 U/L (12-78) Alkaline Phosphatase 74 U/L (46-116) C-Reactive Protein, Quantitative 2.6 mg/dL (0.00-0.90) H Total Protein 8.2 G/DL (6.4-8.2) Albumin 3.9 G/DL (3.4-5.0) Globulin 4.3 g/dL Albumin/Globulin Ratio 0.9 (1.0-2.7) L Triglycerides Level 52 MG/DL (30-150) Cholesterol Level 184 MG/DL (< 200) LDL Cholesterol 135 mg/dL (<100) H HDL Cholesterol 36 MG/DL (40-60) L Cholesterol/HDL Ratio 5.1 (3.3-4.4) H Vitamin B12 Level 413 PG/ML (193-986) Folate 8.8 NG/ML (8.6-58.9) Thyroid Stimulating Hormone (TSH) 0.459 uiU/mL (0.358-3.740) Microbiology Date/Time Source Procedure Growth Status 07/22/18 20:00 Urine,Clean Catch Urine Culture - Final Mixed Gram Positive Organism Complete Objective HEAD AND NECK: No JVD or carotid bruits. LUNGS: Clear. CARDIOVASCULAR: Regular S1 and S2 with no gallop or murmur. ABDOMEN: Soft. EXTREMITIES: No pitting edema. Reza Shah MD July 24, 2018 16:10
[2018-07-24] MEDS ORDERED: Lexiscan 0.4mg/5ml syringe IV PRN (16:15)
[2018-07-24] MEDS ORDERED: Tubing IV Secondary IV ONE (16:58)
[2018-07-24] MEDS ORDERED: NS 275ml ONE (16:58)
--- NOTE | 2018-07-24 17:41 | Cardiology Report ---
APPROVED REPORT EKG Measurement Heart [id number] Normal sinus rhythm Voltage criteria for LVH Abnormal ECG
[2018-07-24 20:00] VITALS: BP 136/79
[2018-07-24] MEDS: Atorvastatin 20mg tab ORAL SCH (21:01)
--- NOTE | 2018-07-24 21:06 | General Progress Note ---
Assessment/Plan Problem List: (1) Elevated troponin ICD Codes: R74.8 - Abnormal levels of other serum enzymes SNOMED: 808734259, 285500598, 699947058 (2) Hypertension ICD Codes: I10 - Essential (primary) hypertension SNOMED: 04199102, 960346849, [id number] Qualifiers: Qualified Codes: I10 - Essential (primary) hypertension (3) Bronchitis ICD Codes: J40 - Bronchitis, not specified as acute or chronic SNOMED: 33442001 Status: stable, progressing Assessment/Plan: afebrile elevated troponin on unknown etiology bronchitis vitals stable Subjective ROS Limited/Unobtainable: Yes Allergies: Coded Allergies: No Known Allergies (Unverified , 05/10/14) Objective Last 24 Hour Vital Signs Date Time Temp Pulse Resp B/P (MAP) Pulse Ox O2 Delivery O2 Flow Rate FiO2 07/24/18 21:00 67 142/76 07/24/18 16:00 77 07/24/18 16:00 99.3 88 18 129/84 (99) 99 88 07/24/18 12:00 98.7 77 18 136/83 (100) 99 77 07/24/18 12:00 69 07/24/18 09:00 Room Air 07/24/18 08:11 77 125/73 07/24/18 08:00 77 07/24/18 08:00 98.6 77 14 125/73 (90) 99 07/24/18 04:00 75 07/24/18 04:00 98.1 75 14 121/64 (83) 99 07/24/18 00:00 69 07/24/18 00:00 98.5 67 16 110/57 (74) 100 Intake and Output 07/23/18 07/24/18 19:00 07:00 Intake Total 330.140 ml Output Total 340 ml Balance -9.860 ml Intake Oral 240 ml IV Total 90.140 ml Output Urine Total 340 ml # Voids 3 Laboratory Tests 07/24/18 03:10: White Blood Count 7.3, Red Blood Count 6.18H, Hemoglobin 17.3, Hematocrit 51.4, Mean Corpuscular Volume 83, Mean Corpuscular Hemoglobin 28.0, Mean Corpuscular Hemoglobin Concent 33.6, Red Cell Distribution Width 11.1L, Platelet Count 211, Mean Platelet Volume 9.9, Neutrophils (%) (Auto) 56.3, Lymphocytes (%) (Auto) 31.8, Monocytes (%) (Auto) 9.1, Eosinophils (%) (Auto) 1.5, Basophils (%) (Auto ) 1.3, Sodium Level 137, Potassium Level 4.0, Chloride Level 100, Carbon Dioxide Level 30, Anion Gap 7, Blood Urea Nitrogen 10, Creatinine 1.1, Estimat Glomerular Filtration Rate > 60, Glucose Level 95, Hemoglobin A1c 5.6, Uric Acid 8.1H, Calcium Level 9.3, Phosphorus Level 3.0, Magnesium Level 1.9, Ferritin 228, Total Bilirubin 0.8, Gamma Glutamyl Transpeptidase 11, Aspartate Amino Transf (AST/SGOT) 24, Alanine Aminotransferase (ALT/SGPT) 33, Alkaline Phosphatase 74, Troponin I 0.232H, C-Reactive Protein, Quantitative 2.6H, Total Protein 8.2, Albumin 3.9, Globulin 4.3, Albumin/Globulin Ratio 0.9L, Triglycerides Level 52, Cholesterol Level 184, LDL Cholesterol 135H, HDL Cholesterol 36L, Cholesterol/HDL Ratio 5.1H, Vitamin B12 Level 413, Folate 8.8, Thyroid Stimulating Hormone (TSH) 0.459 Height (Feet): 5 Height (Inches): 9.00 Weight (Pounds): 207 Cardiovascular: normal rate Respiratory/Chest: lungs clear Abdomen: soft Laurie Gonzales MD July 24, 2018 21:06
--- NOTE | 2018-07-24 22:19 | Psych Consult Progress Note ---
Psychiatry Progress Note Psychiatry Progress Note Subjective the pt is doing well cont to have anxiety ativan alleviates anxiety Medications Current Medications Medications (Trade) Dose Ordered Sig/Eloisa Route PRN Reason Start Time Stop Time Status Last Admin Dose Admin Acetaminophen (Tylenol) 650 mg Q4H PRN ORAL Mild Pain/Temp > 100.5 07/23/18 03:45 08/22/18 03:44 07/23/18 08:32 Albuterol Sulfate (Proventil MDI) 2 puff Q4HRT PRN INH Shortness of Breath 07/23/18 03:45 08/22/18 03:44 Allopurinol (Zyloprim) 200 mg DAILY ORAL 07/25/18 09:00 08/24/18 08:59 Aspirin (ASA) 81 mg DAILY ORAL 07/23/18 09:00 08/22/18 08:59 07/24/18 08:11 Atorvastatin Calcium (Lipitor) 40 mg BEDTIME ORAL 07/23/18 21:00 08/22/18 20:59 07/24/18 21:01 Heparin Sodium (Porcine) (Heparin 5000 units/ml) 5,000 units EVERY 12 HOURS SUBQ 07/23/18 21:00 08/22/18 20:59 07/24/18 21:03 Lorazepam (Ativan) 1 mg Q6H PRN ORAL For Anxiety 07/23/18 14:00 07/30/18 13:59 Metoprolol Tartrate (Lopressor) 25 mg EVERY 12 HOURS ORAL 07/23/18 09:00 08/22/18 08:59 07/24/18 21:00 Ondansetron HCl (Zofran) 4 mg Q6H PRN IVP Nausea & Vomiting 07/23/18 17:30 08/22/18 17:29 Allergies: Coded Allergies: No Known Allergies (Unverified , 05/10/14) Objective Data Height (Feet): 5 Height (Inches): 9.00 Weight (Pounds): 207 General Appearance: WD/WN, no apparent distress, alert, thin, alert oriented x3 Appearance: well groomed Behavior Mannerisms: good eye contact Mental Status Exam - Affect: constricted Mental Status Exam - Mood: anxious Speech: clear Mental Status Exam - Thought P: goal-directed, organized Mental Status Exam - Suicidal: not present Assessment/Plan [place] I: anxiety disorder Status: stable, progressing Assessment/Plan: ativan prn was ordered provided ro dw mother Benjy Cordon MD July 24, 2018 22:19
[2018-07-25] VITALS (7 sets, daily range): BP systolic 109–136; BP diastolic 64–77
[2018-07-25] MEDS: Metoprolol 25mg tab ORAL SCH ×2 (09:00→20:58)
[2018-07-25] MEDS: Heparin 5000 units/ml inj SUBQ SCH ×2 (09:52→20:59)
[2018-07-25] MEDS: Aspirin Baby 81mg ORAL SCH (09:52)
[2018-07-25] MEDS: Allopurinol 100mg Tab ORAL SCH (09:52)
--- NOTE | 2018-07-25 11:55 | Cardiac Electrophysiology PN ---
Assessment/Plan Assessment/Plan 1. Possible dot-JZ-advjmkoez myocardial infarction and elevated troponin. This is unusual as the CPK is normal and the EKG is normal. Urine toxicology screen was also negative. On aspirin, beta-sandy, and statin. Echocardiogram showed Nl EF. The patient has no prior coronary artery disease. Nuclear stress test pending today 2. Hypertension. On Lopressor 25 mg b.i.d. 3. Hyperlipidemia, on Lipitor. 4. Tremor in the hands and feet. On Klonopin and Wellbutrin. 5. Severe hypokalemia, replaced Subjective Subjective No CP or SOB.Awaiting stress test today Objective Last 24 Hour Vital Signs Date Time Temp Pulse Resp B/P (MAP) Pulse Ox O2 Delivery O2 Flow Rate FiO2 07/25/18 09:45 Room Air 07/25/18 09:15 98.0 71 19 131/75 (93) 98 07/25/18 09:00 63 134/77 07/25/18 08:00 72 07/25/18 08:00 98.0 71 19 131/75 (93) 98 07/25/18 04:00 63 07/25/18 04:00 97.9 63 20 134/77 (96) 98 07/25/18 00:00 97.9 63 20 109/64 (79) 96 07/25/18 00:00 63 07/24/18 21:00 Room Air 07/24/18 21:00 67 142/76 07/24/18 20:00 68 07/24/18 20:00 97.9 68 20 136/79 (98) 98 07/24/18 16:00 77 07/24/18 16:00 99.3 88 18 129/84 (99) 99 88 07/24/18 12:00 98.7 77 18 136/83 (100) 99 77 07/24/18 12:00 69 Intake and Output 07/24/18 07/25/18 19:00 07:00 Intake Total 1400 ml Balance 1400 ml Intake Oral 1400 ml # Voids 2 1 Microbiology Date/Time Source Procedure Growth Status 07/22/18 20:00 Urine,Clean Catch Urine Culture - Final Mixed Gram Positive Organism Complete Objective HEAD AND NECK: No JVD or carotid bruits. LUNGS: Clear. CARDIOVASCULAR: Regular S1 and S2 with no gallop or murmur. ABDOMEN: Soft. EXTREMITIES: No pitting edema. Toluie,Reza MD July 25, 2018 11:55
--- NOTE | 2018-07-25 15:42 | General Progress Note ---
Assessment/Plan Status: stable, progressing Assessment/Plan: Assessment and recs: # Erythrocytosis is likely related to dehydration, elevated hgb should resolve with ivf, compensation from heart disease --> ivf have been started along with heparin gtt for nstemi --> erythropoietin is 7.2 --> hgb trending between 16-17 --> outpaitent sleep study # Leukocytosis is likely related to underlying infection --> smear peripheral reviewed, no schistocytes --> trend wbc 11-->7.3 # Hyperproteinemia also related to likely dehydration --> ivf to continue # Hypertension --> bp meds started to maintain sbp <140 # Hypokalemia and k is as low as 2.6 --> have started on Kcl supplementation as per renal # Elevated troponin --> as per cardiology eval --> ekg to be completed as well --> nuc stress test per Dr. Shah # Anxiety The timing of this note does not necessarily reflect the time of the patient was seen. Greatly appreciate consultation! Subjective Constitutional: Denies: no symptoms, chills, diaphoresis, fever, malaise, weakness, other HEENT: Denies: no symptoms, eye pain, blurred vision, tearing, double vision, ear pain, ear discharge, nose pain, nose congestion, throat pain, throat swelling, mouth pain, mouth swelling, other Respiratory: Denies: no symptoms, cough, orthopnea, shortness of breath, SOB with excertion, SOB at rest, sputum, stridor, wheezing, other Gastrointestinal/Abdominal: Denies: no symptoms, abdomen distended, abdominal pain, black stools, tarry stools, blood in stool, constipated, diarrhea, difficulty swallowing, nausea, poor appetite, poor fluid intake, rectal bleeding , vomiting, other Genitourinary: Denies: no symptoms, burning, discharge, frequency, flank pain, hematuria, incontinence, pain, urgency, other Neurologic/Psychiatric: Denies: no symptoms, anxiety, depressed, emotional problems, headache, numbness, paresthesia, pre-existing deficit, seizure, tingling, tremors, weakness, other Endocrine: Denies: no symptoms, excessive sweating, flushing, intolerance to cold, intolerance to heat, increased hunger, increased thirst, increased urine, unexplained weight gain, unexplained weight loss, other Allergies: Coded Allergies: No Known Allergies (Unverified , 05/10/14) Subjective 07/24: no events, no fevers or chills, hgb remains elevated 07/25: continues to have hgb high, seen by cards, as per nuclear stress test Objective Last 24 Hour Vital Signs Date Time Temp Pulse Resp B/P (MAP) Pulse Ox O2 Delivery O2 Flow Rate FiO2 07/25/18 12:28 97.6 74 18 122/65 (84) 98 07/25/18 09:45 Room Air 07/25/18 09:15 98.0 71 19 131/75 (93) 98 07/25/18 09:00 63 134/77 07/25/18 08:00 72 07/25/18 08:00 98.0 71 19 131/75 (93) 98 07/25/18 04:00 63 07/25/18 04:00 97.9 63 20 134/77 (96) 98 07/25/18 00:00 97.9 63 20 109/64 (79) 96 07/25/18 00:00 63 07/24/18 21:00 Room Air 07/24/18 21:00 67 142/76 07/24/18 20:00 68 07/24/18 20:00 97.9 68 20 136/79 (98) 98 07/24/18 16:00 77 07/24/18 16:00 99.3 88 18 129/84 (99) 99 88 Intake and Output 07/24/18 07/25/18 19:00 07:00 Intake Total 1400 ml Balance 1400 ml Intake Oral 1400 ml # Voids 2 1 Height (Feet): 5 Height (Inches): 9.00 Weight (Pounds): 207 Objective General: well appearing, no apparent distress, GCS 15 Head: normocephalic Eyes: bilateral eye normal inspection, bilateral eye PERRL, bilateral eye EOMI ENT: moist mucus membranes Neck: supple Respiratory: chest non-tender, lungs clear, normal breath sounds Cardiovascular: regular rate, rhythm, no edema Gastrointestinal: normal inspection, normal bowel sounds, nt Musculoskeletal: back normal, gait/station normal, nml rom Neurologic: alert, oriented x3, grossly noral Psychiatric: anxious Skin: normal inspection, warm/dry Sunny Wei MD July 25, 2018 15:42
--- NOTE | 2018-07-25 16:25 | Nephrology Progress Note ---
Assessment/Plan Problem List: (1) Elevated troponin (2) Hypertension (3) Hyperuricemia Assessment HypoKalemia Elevated troponin HTN Asthma Plan PO K- Per cardio- due stress test keep BP in check- add allopurinol for hyperuricemia Subjective ROS Limited/Unobtainable: No Objective Objective Last 24 Hour Vital Signs Date Time Temp Pulse Resp B/P (MAP) Pulse Ox O2 Delivery O2 Flow Rate FiO2 07/25/18 12:28 97.6 74 18 122/65 (84) 98 07/25/18 09:45 Room Air 07/25/18 09:15 98.0 71 19 131/75 (93) 98 07/25/18 09:00 63 134/77 07/25/18 08:00 72 07/25/18 08:00 98.0 71 19 131/75 (93) 98 07/25/18 04:00 63 07/25/18 04:00 97.9 63 20 134/77 (96) 98 07/25/18 00:00 97.9 63 20 109/64 (79) 96 07/25/18 00:00 63 07/24/18 21:00 Room Air 07/24/18 21:00 67 142/76 07/24/18 20:00 68 07/24/18 20:00 97.9 68 20 136/79 (98) 98 Intake and Output 07/24/18 07/25/18 19:00 07:00 Intake Total 1400 ml Balance 1400 ml Intake Oral 1400 ml # Voids 2 1 Height (Feet): 5 Height (Inches): 9.00 Weight (Pounds): 207 General Appearance: no apparent distress Objective no change Tommie Jackson MD July 25, 2018 16:25
--- NOTE | 2018-07-25 17:06 | Diagnostic Imaging Report ---
Indications: Chest pain, hypertension, dyspnea Technique: Single day single isotope protocol utilized. Initially, resting images obtained using IV administration 10.1 millicuries 99M technetium Myoview. Subsequently, patient underwent treadmill stress testing. See cardiology report for details. During exercise, IV administration 30.8 mCi 99 M technetium Myoview. SPECT and planar images obtained. SPECT images gated to 8 phases of the cardiac cycle were also obtained, and reformatted into cine images for evaluation of ejection fraction. Comparison: none Findings: Per cardiology report, patient experienced no symptoms. Per cardiology report, resting EKG demonstrates sinus tachycardia. No significant ST-T wave changes noted during infusion. Patient achieved a peak exercise heart rate 187, in excess of the target heart rate of167. Imaging demonstrates normal poststress perfusion, no fixed nor reversible post stress perfusion defects.. Calculated post stress ejection fraction 67%. No evidence of focal wall motion abnormality Impression: Nonischemic clinical response to pharmacologic stress, per cardiology report Nonischemic electrocardiographic response to pharmacologic stress, per cardiology report No imaging findings to suggest ischemia, at level of stress achieved. Calculated post stress ejection fraction 67%
--- NOTE | 2018-07-25 20:45 | General Progress Note ---
Assessment/Plan Problem List: (1) Elevated troponin ICD Codes: R74.8 - Abnormal levels of other serum enzymes SNOMED: 199186625, 424110858, 924598259 (2) Hypertension ICD Codes: I10 - Essential (primary) hypertension SNOMED: 64533359, 175502826, 127447315 Qualifiers: Qualified Codes: I10 - Essential (primary) hypertension (3) Bronchitis ICD Codes: J40 - Bronchitis, not specified as acute or chronic SNOMED: 08825456 Status: stable, progressing Assessment/Plan: troponin is trending down stress test per cardiology bronchitis afebrile Subjective ROS Limited/Unobtainable: Yes Allergies: Coded Allergies: No Known Allergies (Unverified , 05/10/14) Objective Last 24 Hour Vital Signs Date Time Temp Pulse Resp B/P (MAP) Pulse Ox O2 Delivery O2 Flow Rate FiO2 07/25/18 16:24 99.1 88 18 125/69 (87) 98 07/25/18 16:00 89 07/25/18 12:28 97.6 74 18 122/65 (84) 98 07/25/18 12:00 66 07/25/18 09:45 Room Air 07/25/18 09:15 98.0 71 19 131/75 (93) 98 07/25/18 09:00 63 134/77 07/25/18 08:00 72 07/25/18 08:00 98.0 71 19 131/75 (93) 98 07/25/18 04:00 63 07/25/18 04:00 97.9 63 20 134/77 (96) 98 07/25/18 00:00 97.9 63 20 109/64 (79) 96 07/25/18 00:00 63 07/24/18 21:00 Room Air 07/24/18 21:00 67 142/76 Intake and Output 07/24/18 07/25/18 18:59 06:59 Intake Total 1000 ml 400 ml Balance 1000 ml 400 ml Intake Oral 1000 ml 400 ml # Voids 3 Height (Feet): 5 Height (Inches): 9.00 Weight (Pounds): 207 Neck: supple Cardiovascular: normal rate Respiratory/Chest: lungs clear Abdomen: soft Laurie Gonzales MD July 25, 2018 20:45
[2018-07-25] MEDS: Atorvastatin 20mg tab ORAL SCH (20:58)
[2018-07-26] VITALS: BP 105/52
--- NOTE | 2018-07-26 00:24 | Psych Consult Progress Note ---
Psychiatry Progress Note Psychiatry Progress Note Medications Current Medications Medications (Trade) Dose Ordered Sig/Eloisa Route PRN Reason Start Time Stop Time Status Last Admin Dose Admin Acetaminophen (Tylenol) 650 mg Q4H PRN ORAL Mild Pain/Temp > 100.5 07/23/18 03:45 08/22/18 03:44 07/23/18 08:32 Albuterol Sulfate (Proventil MDI) 2 puff Q4HRT PRN INH Shortness of Breath 07/23/18 03:45 08/22/18 03:44 Allopurinol (Zyloprim) 200 mg DAILY ORAL 07/25/18 09:00 08/24/18 08:59 07/25/18 09:52 Aspirin (ASA) 81 mg DAILY ORAL 07/23/18 09:00 08/22/18 08:59 07/25/18 09:52 Atorvastatin Calcium (Lipitor) 40 mg BEDTIME ORAL 07/23/18 21:00 08/22/18 20:59 07/25/18 20:58 Heparin Sodium (Porcine) (Heparin 5000 units/ml) 5,000 units EVERY 12 HOURS SUBQ 07/23/18 21:00 08/22/18 20:59 07/25/18 20:59 Lorazepam (Ativan) 1 mg Q6H PRN ORAL For Anxiety 07/23/18 14:00 07/30/18 13:59 07/25/18 20:57 Metoprolol Tartrate (Lopressor) 25 mg EVERY 12 HOURS ORAL 07/23/18 09:00 08/22/18 08:59 07/25/18 20:58 Ondansetron HCl (Zofran) 4 mg Q6H PRN IVP Nausea & Vomiting 07/23/18 17:30 08/22/18 17:29 Neurological/Psychiatric: Reports: anxiety, depressed, emotional problems Allergies: Coded Allergies: No Known Allergies (Unverified , 05/10/14) Objective Data Height (Feet): 5 Height (Inches): 9.00 Weight (Pounds): 207 General Appearance: WD/WN, no apparent distress, alert, alert oriented x3 Appearance: well groomed Behavior Mannerisms: good eye contact Mental Status Exam - Affect: constricted Mental Status Exam - Mood: anxious Speech: clear Mental Status Exam - Thought P: logical, goal-directed Mental Status Exam - Suicidal: not present Assessment/Plan Status: stable, progressing Assessment/Plan: ativan prn was ordered provided ro dw mother Benjy Cordon MD July 26, 2018 00:24
[2018-07-26 04:00] VITALS: BP 107/54
[2018-07-26 08:00] VITALS: BP 116/56
[2018-07-26] MEDS: Allopurinol 100mg Tab ORAL SCH (08:45)
[2018-07-26] MEDS: Metoprolol 25mg tab ORAL SCH (08:46)
[2018-07-26] MEDS: Aspirin Baby 81mg ORAL SCH (08:46)
[2018-07-26] MEDS: Heparin 5000 units/ml inj SUBQ SCH (08:46)
--- NOTE | 2018-07-26 09:07 | General Progress Note ---
Assessment/Plan Problem List: (1) Elevated troponin ICD Codes: R74.8 - Abnormal levels of other serum enzymes SNOMED: 026858272, [id number], [id number] (2) Hypertension ICD Codes: I10 - Essential (primary) hypertension SNOMED: 59028836, 448409597, [id number] Qualifiers: Qualified Codes: I10 - Essential (primary) hypertension (3) Bronchitis ICD Codes: J40 - Bronchitis, not specified as acute or chronic SNOMED: 86602205 Status: stable, progressing Assessment/Plan: troponin is trending down stress test per cardiology no cp no sob clinically improving Subjective ROS Limited/Unobtainable: Yes Allergies: Coded Allergies: No Known Allergies (Unverified , 05/10/14) Objective Last 24 Hour Vital Signs Date Time Temp Pulse Resp B/P (MAP) Pulse Ox O2 Delivery O2 Flow Rate FiO2 07/26/18 08:46 78 116/56 07/26/18 04:00 67 07/26/18 04:00 98.1 71 18 107/54 (71) 99 07/26/18 00:00 67 07/26/18 00:00 98.0 65 20 105/52 (69) 99 07/25/18 21:00 Room Air 07/25/18 20:58 81 136/75 07/25/18 20:00 98.1 81 20 136/75 (95) 98 07/25/18 20:00 80 07/25/18 16:24 99.1 88 18 125/69 (87) 98 07/25/18 16:00 89 07/25/18 12:28 97.6 74 18 122/65 (84) 98 07/25/18 12:00 66 07/25/18 09:45 Room Air 07/25/18 09:15 98.0 71 19 131/75 (93) 98 Intake and Output 07/25/18 07/26/18 19:00 07:00 Intake Total 950 ml Balance 950 ml Other 950 ml # Voids 2 Height (Feet): 5 Height (Inches): 9.00 Weight (Pounds): 207 Cardiovascular: normal rate Respiratory/Chest: lungs clear Abdomen: soft Laurie Gonzales MD July 26, 2018 09:07
[2018-07-26 12:00] VITALS: BP 124/68
--- NOTE | 2018-07-26 15:19 | Cardiac Electrophysiology PN ---
Assessment/Plan Assessment/Plan 1. Possible dwb-BU-plykyzjex myocardial infarction and elevated troponin. This is unusual as the CPK is normal and the EKG is normal. Urine toxicology screen was also negative. On aspirin, beta-sandy, and statin. Echocardiogram showed Nl EF. The patient has no prior coronary artery disease. Nuclear stress test showed no ischemia 2. Hypertension. On Lopressor 25 mg b.i.d. 3. Hyperlipidemia, on Lipitor. 4. Tremor in the hands and feet. On Klonopin and Wellbutrin. 5. Severe hypokalemia, replaced OK to DC Subjective Subjective No CP or SOB. Had stress test yesterday. Objective Last 24 Hour Vital Signs Date Time Temp Pulse Resp B/P (MAP) Pulse Ox O2 Delivery O2 Flow Rate FiO2 07/26/18 12:00 98.8 74 18 124/68 (86) 96 07/26/18 12:00 68 07/26/18 09:00 Room Air 07/26/18 08:46 78 116/56 07/26/18 08:00 98.3 78 18 116/56 (76) 96 07/26/18 08:00 71 07/26/18 04:00 67 07/26/18 04:00 98.1 71 18 107/54 (71) 99 07/26/18 00:00 67 07/26/18 00:00 98.0 65 20 105/52 (69) 99 07/25/18 21:00 Room Air 07/25/18 20:58 81 136/75 07/25/18 20:00 98.1 81 20 136/75 (95) 98 07/25/18 20:00 80 07/25/18 16:24 99.1 88 18 125/69 (87) 98 07/25/18 16:00 89 Intake and Output 07/25/18 07/26/18 19:00 07:00 Intake Total 950 ml Balance 950 ml Other 950 ml # Voids 2 Objective HEAD AND NECK: No JVD or carotid bruits. LUNGS: Clear. CARDIOVASCULAR: Regular S1 and S2 with no gallop or murmur. ABDOMEN: Soft. EXTREMITIES: No pitting edema. Reza Shah MD July 26, 2018 15:19
[2018-07-26 16:00] VITALS: BP 124/71
--- NOTE | 2018-07-26 17:06 | Nephrology Progress Note ---
Assessment/Plan Problem List: (1) Elevated troponin (2) Hypertension (3) Hyperuricemia Assessment HypoKalemia Elevated troponin HTN Asthma Plan PO K- Per cardio- due stress test keep BP in check- add allopurinol for hyperuricemia ? DC - Okayed by Cardio Subjective ROS Limited/Unobtainable: No Objective Objective Last 24 Hour Vital Signs Date Time Temp Pulse Resp B/P (MAP) Pulse Ox O2 Delivery O2 Flow Rate FiO2 07/26/18 16:00 98.5 71 18 124/71 (88) 96 07/26/18 12:00 98.8 74 18 124/68 (86) 96 07/26/18 12:00 68 07/26/18 09:00 Room Air 07/26/18 08:46 78 116/56 07/26/18 08:00 98.3 78 18 116/56 (76) 96 07/26/18 08:00 71 07/26/18 04:00 67 07/26/18 04:00 98.1 71 18 107/54 (71) 99 07/26/18 00:00 67 07/26/18 00:00 98.0 65 20 105/52 (69) 99 07/25/18 21:00 Room Air 07/25/18 20:58 81 136/75 07/25/18 20:00 98.1 81 20 136/75 (95) 98 07/25/18 20:00 80 Intake and Output 07/25/18 07/26/18 19:00 07:00 Intake Total 950 ml Balance 950 ml Other 950 ml # Voids 2 Height (Feet): 5 Height (Inches): 9.00 Weight (Pounds): 207 General Appearance: no apparent distress Objective no change Tommie Jackson MD July 26, 2018 17:06
--- NOTE | 2018-07-28 13:35 | Discharge Summary ---
Discharge Summary Discharge Summary _ DATE OF ADMISSION: 07/22/2018 DATE OF DISCHARGE: 07/26/2018 DISCHARGED BY: REASON FOR ADMISSION: 22 years old male with past medical history of hypertension, high cholesterol , asthma, depression ,anxiety, presented to emergency department with a complaint of palpitations and strange feeling in his chest. Patient admitted being under increased stress at this time. Patient reported being compliant with his medication regimen. Patient denied any drug use. He denied dizziness , orthopnea, paroxysmal nocturnal dyspnea. No leg swelling, no calf pain. No shortness of breath. Upon evaluation blood pressure was elevated 174/107, pulse oximetry was stable on room air. Patient was slightly tachycardic. Laboratory work-up revealed mild leukocytosis WBC 11.1, stable hemoglobin and hematocrit. Urinalysis revealed +1 protein, no evidence of urinary tract infection. Potassium 3.3 . Stable renal parameters and other electrolytes Glucose 114. Stable LFT. Troponin -0.106; pro BNP 5. EKG revealed sinus rhythm with nonspecific ST-T wave changes. Albumin 4.6. Urine toxicology screen was negative. Chest x-ray revealed no acute cardiopulmonary pathology Patient admitted to telemetry floor for further management CONSULTANTS: community health representative Dr. Durán director technical Dr. Jackson powertrain engineer/oncologist Dr. Nuñez psychiatrist [facility] COURSE: Patient admitted to telemetry floor Supervisor Packing closely followed. Serial troponin initially trended upward and then started to trend down. Patient initially was on heparin drip. EKG revealed no acute ischemic changes. Echocardiogram revealed preserved ejection fraction of 60 to 65% with no evidence of wall motion abnormality. No evidence of left ventricular hypertrophy. Right ventricular systolic pressure of 9. Lipid panel revealed elevated LDL of 135 and low HDL of 36. Patient started on antiplatelet therapy with aspirin and statin. Patient was counseled on low-fat, low-cholesterol, cardiac diet. DVT prophylaxis provided. Patient started on beta blockage. Topical nitroglycerin provided. Anxiolytic provided as needed. Patient subsequently undergone myocardial perfusion scan due to multiply risk factors, which was negative. Calculated post stress ejection fraction was 67%. Venous duplex bilateral lower extremity revealed no evidence of acute DVT. Supplemental oxygen was on board as needed to keep pulse oximetry above 92%. Pulse oximetry was stable on room air. Per community health representative , patient possibly might had NSTEMI, however this was unusual since his CK was normal . EKG was normal. Renal parameters and electrolytes were closely monitored. Electrolytes corrected as needed. Renal parameters remained stable. Potassium 4.0 -prior to discharge. Allopurinol was added for hyperuricemia. Patient noted to have erythrocytosis likely due to dehydration. Patient was on the IV fluids. Hyperproteinemia was likely due to dehydration as well and resolved with IV fluids. Psychiatrist followed. Reality orientation provided. Anxiolytic were on board as needed. Patient clinically stabilized and was ready for discharge home. FINAL DIAGNOSES: Elevated troponin, possible non-STEMI Hypertension Hyperlipidemia Severe hypokalemia-resolved Tremors in hands and feet Hyperuricemia Asthma Hyperproteinemia, likely due to dehydration -resolved Erythrocytosis likely due to dehydration - improving Anxiety disorder DISCHARGE MEDICATIONS: See Medication Reconciliation list. DISCHARGE INSTRUCTIONS: Patient was discharged home. Follow up with primary care provider in one week. I have been assigned to dictate discharge summary for this account. I was not involved in the patient's management. Fadumo Sood NP July 28, 2018 13:35
== END 2018-07-26 16:45 | disposition home or self-care (01) | DRG 190 ==
LOC: EMR 19:59 → EDBEDREQ 21:31 → 2W 21:45 → EDBEDREQ 22:15 → 2W 22:42 → 2E 07-24 06:39
DX: I21.4 Non-ST elevation (NSTEMI) myocardial infarction (principal); E86.0 Dehydration; D75.1 Secondary polycythemia; E78.5 Hyperlipidemia, unspecified; E87.6 Hypokalemia; I10 Essential (primary) hypertension; R25.1 Tremor, unspecified; E79.0 Hyperuricemia without signs of inflammatory arthritis and tophaceous disease; J45.909 Unspecified asthma, uncomplicated; F41.9 Anxiety disorder, unspecified; J40 Bronchitis, not specified as acute or chronic
CPT/HCPCS: 36415; 71045; 78452; 80053; 80061; 80307; 81003; 82550; 82607; 82668; 82728; 82746; 82977; 83036; 83735; 83880; 84100; 84132; 84443; 84484; 84550; 85025; 85379; 85610; 85730; 86140; 87086; 93005; 93017; 93306; 93970; 99285; J8499

== ENCOUNTER 2018-08-21 04:33 | Emergency (ER) | payer MEDICAID ==
[~2018-08-21] VITALS: Ht 177.8 cm; Wt 93.9 kg
[~2018-08-21 04:33] MED LIST changes: +ATORVASTATIN CA40 MG ORAL; +HYDROCHLOROTHIA25 MG ORAL; +WELLBUTRIN XL150 MG ORAL
--- NOTE | 2018-08-21 04:49 | NUR ---
ED Nurse Note: Patient is here because he experiences chest heaviness on occasion.
[2018-08-21 04:57] VITALS: BP 148/82
--- NOTE | 2018-08-21 05:09 | Emergency Room Report ---
History of Present Illness General Chief Complaint: General Complaint Source: Patient Present Illness HPI Patient is had chest heaviness for at least a week. He has increased anxiety recently regarding admission July 22 with a positive troponin. He was discharged on Lipitor but because of adverse reaction to that he stopped it. He does have anxiety. He's been taking Benadryl and hydroxyzine. There are times when he feels hyperventilation. Heaviness is independent at that area When he was admitted July 22 he had complained about palpitations. Troponin monica and maxed at .4. Echo was with EF 60-65%. Allergies: Coded Allergies: No Known Allergies (Unverified , 08/21/18) Patient History Past Medical History: see triage record Social History: Denies: smoking, alcohol use, drug use Reviewed Nursing Documentation: PMH: Agreed; PSxH: Agreed Nursing Documentation-PMH Hx Hypertension: Yes Hx Asthma: Yes Hx Cancer: No Hx Gastrointestinal Problems: No History Of Psychiatric Problem: Yes - DEPRESSION, ANXIETY Hx Neurological Problems: No Physical Exam Vital Signs Date Time Temp Pulse Resp B/P (MAP) Pulse Ox O2 Delivery O2 Flow Rate FiO2 08/21/18 04:37 98.4 100 16 148/82 (104) 99 Room Air Medical Decision Making Diagnostic Impression: Primary Impression: Anxiety Additional Impressions: Chest heaviness Hypokalemia ER Course patient improved with treatment Laboratory Tests Test 08/21/18 05:15 08/21/18 05:25 White Blood Count 8.6 K/UL (4.8-10.8) Red Blood Count 6.27 M/UL (4.70-6.10) H Hemoglobin 17.6 G/DL (14.2-18.0) Hematocrit 51.8 % (42.0-52.0) Mean Corpuscular Volume 83 FL (80-99) Mean Corpuscular Hemoglobin 28.1 PG (27.0-31.0) Mean Corpuscular Hemoglobin Concent 34.0 G/DL (32.0-36.0) Red Cell Distribution Width 11.0 % (11.6-14.8) L Platelet Count 243 K/UL (150-450) Mean Platelet Volume 9.6 FL (6.5-10.1) Neutrophils (%) (Auto) 55.8 % (45.0-75.0) Lymphocytes (%) (Auto) 31.6 % (20.0-45.0) Monocytes (%) (Auto) 8.6 % (1.0-10.0) Eosinophils (%) (Auto) 2.7 % (0.0-3.0) Basophils (%) (Auto) 1.3 % (0.0-2.0) Prothrombin Time 11.4 SEC (9.30-11.50) Prothrombin Time INR 1.1 (0.9-1.1) PTT 33 SEC (23-33) Sodium Level 137 MMOL/L (136-145) Potassium Level 3.0 MMOL/L (3.5-5.1) L Chloride Level 96 MMOL/L (98-107) L Carbon Dioxide Level 31 MMOL/L (21-32) Anion Gap 10 mmol/L (5-15) Blood Urea Nitrogen 16 mg/dL (7-18) Creatinine 1.2 MG/DL (0.55-1.30) Estimate Glomerular Filtration Rate > 60 mL/min (>60) Glucose Level 104 MG/DL (74-106) Calcium Level 9.8 MG/DL (8.5-10.1) Total Bilirubin 0.4 MG/DL (0.2-1.0) Aspartate Amino Transferase (AST) 18 U/L (15-37) Alanine Aminotransferase (ALT) 40 U/L (12-78) Alkaline Phosphatase 89 U/L (46-116) Total Creatine Kinase 90 U/L (26-308) Troponin I 0.000 ng/mL (0.000-0.056) Pro-B-Type Natriuretic Peptide 5 pg/mL (0-125) Total Protein 9.1 G/DL (6.4-8.2) H Albumin 4.4 G/DL (3.4-5.0) Globulin 4.7 g/dL Albumin/Globulin Ratio 0.9 (1.0-2.7) L Urine Color Yellow Urine Appearance Clear Urine pH 7 (4.5-8.0) Urine Specific [place] 1.010 (1.005-1.035) Urine Protein Negative (NEGATIVE) Urine Glucose (UA) Negative (NEGATIVE) Urine Ketones 1+ (NEGATIVE) H Urine Blood 2+ (NEGATIVE) H Urine Nitrite Negative (NEGATIVE) Urine Bilirubin Negative (NEGATIVE) Urine Urobilinogen 4 MG/DL (0.0-1.0) H Urine Leukocyte Esterase 1+ (NEGATIVE) H Urine RBC 5-10 /HPF (0 - 0) H Urine WBC 0-2 /HPF (0 - 0) Urine Squamous Epithelial Cells Occasional /LPF Urine Bacteria Few /HPF (NONE) Urine Opiates Screen Negative (NEGATIVE) Urine Barbiturates Screen Negative (NEGATIVE) Phencyclidine (PCP) Screen Negative (NEGATIVE) Urine Amphetamines Screen Negative (NEGATIVE) Urine Benzodiazepines Screen Negative (NEGATIVE) Urine Cocaine Screen Negative (NEGATIVE) Urine Marijuana (THC) Screen Negative (NEGATIVE) EKG Diagnostic Results Rate: normal Rhythm: NSR ST Segments: no acute changes Rhythm Strip Diag. Results EP Interpretation: yes Rhythm: NSR, no PVC's, no ectopy Chest X-Ray Diagnostic Results Chest X-Ray Diagnostic Results : Chest X-Ray Ordered: Yes # of Views/Limited/Complete: 1 View Indication: Other EP Interpretation: Yes Interpretation: no consolidation, no effusion, no pneumothorax Impression: No acute disease Electronically Signed by: Electronically signed by Juve Rodriguez MD Status: improved Disposition: HOME, SELF-CARE Condition: Improved Referrals: [facility],REFERRING (PCP) Juve Rodriguez MD August 21, 2018 05:09
[2018-08-21] MEDS ORDERED: LORazepam Inj 2mg/ml 1ml IV ONE (05:15)
--- NOTE | 2018-08-21 05:32 | NUR ---
ED Nurse Note: Patient is resting comfortably. vital signs stable, all labs collected.
[2018-08-21 05:39] LABS: ANION GAP 10 mmol/L (5-15); BASOPHILS % (AUTO) 1.3 % (0.0-2.0); BLOOD UREA NITROGEN 16 mg/dL (7-18); CALCIUM 9.8 MG/DL (8.5-10.1); CARBON DIOXIDE 31 MMOL/L (21-32); CHLORIDE 96 MMOL/L (98-107); CREATININE 1.2 MG/DL (0.55-1.30); EOSINOPHILS % (AUTO) 2.7 % (0.0-3.0); HEMATOCRIT 51.8 % (42.0-52.0); HEMOGLOBIN 17.6 G/DL (14.2-18.0); LYMPHOCYTES % (AUTO) 31.6 % (20.0-45.0); MEAN CORPUSCULAR VOLUME 83 FL (80-99); MONOCYTES % (AUTO) 8.6 % (1.0-10.0); NEUTROPHILS % (AUTO) 55.8 % (45.0-75.0); PLATELET COUNT 243 K/UL (150-450); RED BLOOD COUNT 6.27 M/UL (4.70-6.10); SODIUM 137 MMOL/L (136-145); WHITE BLOOD COUNT 8.6 K/UL (4.8-10.8)
[2018-08-21 05:41] LABS: INR 1.1 (0.9-1.1)
[2018-08-21 05:49] LABS: ALANINE AMINOTRANSFERASE 40 U/L (12-78); ALBUMIN 4.4 G/DL (3.4-5.0); ALBUMIN/GLOBULIN RATIO 0.9 (1.0-2.7); ALKALINE PHOSPHATASE 89 U/L (46-116); ASPARTATE AMINO TRANSFERASE 18 U/L (15-37); BILIRUBIN,TOTAL 0.4 MG/DL (0.2-1.0); CREATINE KINASE 90 U/L (26-308)
[2018-08-21 05:57] LABS: APPEARANCE,URINE CLEAR; BILIRUBIN, URINE NEGATIVE (NEGATIVE); COLOR,URINE YELLOW; GLUCOSE, URINE (UA) NEGATIVE (NEGATIVE); KETONES,URINE 1+ (NEGATIVE); LEUKOCYTE ESTERASE ,URINE 1+ (NEGATIVE); NITRITE,URINE NEGATIVE (NEGATIVE); PH,URINE 7 (4.5-8.0); PROTEIN,URINE NEGATIVE (NEGATIVE); UROBILINOGEN,URINE 4 MG/DL (0.0-1.0)
[2018-08-21] MEDS ORDERED: ATIVAN0.5 MG ORAL (06:49)
--- NOTE | 2018-08-21 07:03 | NUR ---
ED Nurse Note: Patient cleared for discharge. Patient is ambulatory with steady gait, A&Ox4, and verbalized understanding of discharge instructions. PAtient departed with all belongings accompanied by his mother.
[2018-08-21 07:04] VITALS: BP 148/82
--- NOTE | 2018-08-21 11:56 | Diagnostic Imaging Report ---
Indication: Chest pain Technique: One view of the chest Comparison: July 22, 2018 Findings: Lungs and pleural spaces remain clear. The heart size is normal. No significant interim change Impression: Negative
--- NOTE | 2018-08-21 12:09 | Cardiology Report ---
APPROVED REPORT EKG Measurement Heart [id number] Normal sinus rhythm Voltage criteria for LVH Abnormal ECG
== END 2018-08-21 07:05 | disposition home or self-care (01) ==
LOC: EMR 05:04
DX: F41.9 Anxiety disorder, unspecified (principal); E87.6 Hypokalemia; F32.9 Major depressive disorder, single episode, unspecified; J45.909 Unspecified asthma, uncomplicated
CPT/HCPCS: 36415; 71045; 80053; 80307; 81003; 82550; 83880; 84484; 85025; 85610; 85730; 93005; 96374; 99284; J8499

== ENCOUNTER 2019-11-24 10:49 | Emergency (ER) | payer MEDICAID ==
[~2019-11-24] VITALS: Ht 170.2 cm; Wt 95.3 kg
[~2019-11-24 10:49] MED LIST changes: +ATIVAN0.5 MG ORAL
[2019-11-24 10:58] VITALS: BP 169/90
[2019-11-24 11:36] LABS: HEMATOCRIT 51.1 % (42.0-52.0); HEMOGLOBIN 16.9 G/DL (14.2-18.0); LYMPHOCYTES % (AUTO) 29.4 % (20.0-45.0); MEAN CORPUSCULAR VOLUME 85 FL (80-99); MONOCYTES % (AUTO) 10.9 % (1.0-10.0); NEUTROPHILS % (AUTO) 54.7 % (45.0-75.0); PLATELET COUNT 226 K/UL (150-450); RED BLOOD COUNT 5.98 M/UL (4.70-6.10); RED CELL DISTRIBUTION WIDTH 11.8 % (11.6-14.8); WHITE BLOOD COUNT 10.2 K/UL (4.8-10.8)
[2019-11-24 11:47] LABS: ANION GAP 8 mmol/L (5-15); BLOOD UREA NITROGEN 8 mg/dL (7-18); CALCIUM 9.2 MG/DL (8.5-10.1); CARBON DIOXIDE 31 MMOL/L (21-32); CHLORIDE 101 MMOL/L (98-107); CREATININE 1.2 MG/DL (0.55-1.30); POTASSIUM 3.6 MMOL/L (3.5-5.1); SODIUM 140 MMOL/L (136-145)
[2019-11-24 11:59] LABS: ALANINE AMINOTRANSFERASE 22 U/L (12-78); ALBUMIN 4.3 G/DL (3.4-5.0); ALKALINE PHOSPHATASE 54 U/L (46-116); ASPARTATE AMINO TRANSFERASE 23 U/L (15-37); BILIRUBIN,TOTAL 0.6 MG/DL (0.2-1.0)
[2019-11-24] MEDS ORDERED: Ketorolac 30mg Inj IM ONE (12:30)
[2019-11-24] MEDS ORDERED: IBUPROFEN600 M1 ORAL (12:40)
--- NOTE | 2019-11-24 12:40 | Emergency Room Report ---
History of Present Illness General Chief Complaint: Chest Pain Source: Patient, Medical Record Present Illness HPI 24M PMHx HTN, HLD, anxiety c/o chest wall pain x 1 month. Intermittent and last only a few seconds at a time then self resolves without medication. Pt states that it only happens when he is sitting and then goes to stretch his shoulder he feels a "pop" by his breastbone. He currently denies and CP, SOB, n/v/d, hemoptysis, melena, hematochezia, fever , cough, recent trauma/surgery/immobilization or hx of thrombosis. The patient's symptoms were gradual onset, severity was moderate, duration since 1 day Quality: currently pain free Denies any chest pain this morning. Just thought he would get "checked out" Past medical history: HTN HLD asthma Past surgical history: Denies Smoking: Denies Alcohol use: Denies Drug use: Denies Review of systems: CONST: No fevers or chills, No night sweats PULMONARY: No productive cough, No shortness of breath CARDIAC: No chest pain, No palpitations GI: No vomiting, No diarrhea , No melena_or_BRBPR : No dysuria, No hematuria, No discharge NEURO: No new_focal_weakness_or_numbness, No confusion, No vision changes 14 point Review of Systems is otherwise negative except per HPI Physical Exam: GENERAL: Awake_alert_ nontoxic, no acute distress Spo2 99% on [RA] -[normal] EYES: Extraocular muscles are intact. Conjunctivae clear. Lids without swelling ENT: External nose and ear normal_in_appearance. Oropharynx clear. Head_ atraumatic, Moist_oral_mucosa NECK: No JVD. No meningismus. No thyromegaly. Supple. Trachea midline RESP: Normal respiratory effort. Symmetric rise. No stridor. Clear_to_ auscultation_No_rales_No_wheezes CARDIAC: Regular rate. Reproducible anterior chest wall TTP at bilateral costochondral junction. No_significant pedal edema. ABDOMEN: Soft. Nondistended. Nontender_No_rebound_or_guarding. MSK: Normal muscle tone, without rigidity. Extremities without asymmetric deformity or swelling. SKIN: Warm and dry. No visible cyanosis or pallor NEUROLOGIC: Alert, oriented x 3. Motor_and_sensation_grossly_intact. No truncal ataxia. Gait_normal Psych: Normal mood and affect, normal judgment and insight - COORDINATION OF CARE Case was discussed with: Patient Any labs and imaging that were ordered were interpreted as part of the medical decision making: Medical Decision Making/Plan: Differential includes acute coronary syndrome, pulmonary embolism, pneumonia, aortic dissection, pericardial tamponade, musculoskeletal chest pain, among others. Patient is currently well appearing with stable vitals. Acute coronary syndrome is unlikely and the patient is low risk, pain is atypical, nonexertional. Troponin is negative with over 6 hrs of symptoms. With over 1 month of symptoms , ACS is unlikely. EKG without any obvious signs of ischemia. Chest xray shows no evidence of pneumothorax, pneumonia, or significant pleural effusion. Dimer negative. Low risk for PE. PERC negative. Symptoms likely musculoskeletal in nature. Toradol ordered but patient refused because he was asymptomatic in the ED. The pain is not classic for pericarditis or myocarditis, and the patient has no significant risk factors for a pericardial effusion and has stable vitals signs , unlikely to have tamponade. The patient has no significant risk factors for aortic dissection, no history of connective tissue disorder, and the patients pain is not severe, radiating to the back, or tearing in nature. They have normal bilateral radial and pedal pulses. Initial plan: patient observed for several hours in the ED, ECG with no emergent findings, patient discharged with no dangerous vital signs, patient instructed to follow up with PMD in the next 1-2 days to be referred for a treadmill stress test within the next 48-72 hours. Upon calculating the patient's HEART score, they were found to have a HEART score < 4, which indicates low risk, so the patient can be safely discharged with the understanding that they need to make an appointment with a primary care doctor to be referred for a stress test within the next 48-72 hours, or if they cannot arrange that they are to return to the ED, or sooner than that if they have any changing, persistent, or worsening symptoms. Allergies: Coded Allergies: No Known Allergies (Unverified , 08/21/18) COVID-19 Screening Contact w/high risk pt: No Experienced COVID-19 symptoms?: No COVID-19 Testing performed WRISTER: No Nursing Documentation-PMH Past Medical History: No History, Except For Hx Hypertension: Yes Hx Asthma: Yes Hx Cancer: No Hx Gastrointestinal Problems: No Hx Neurological Problems: No Physical Exam Vital Signs Date Time Temp Pulse Resp B/P (MAP) Pulse Ox O2 Delivery O2 Flow Rate FiO2 11/24/19 10:58 98.6 82 20 172/92 (118) 95 Room Air Sp02 EP Interpretation: reviewed, normal Medical Decision Making Diagnostic Impression: Primary Impression: Atypical chest pain Additional Impression: Anxiety EKG Diagnostic Results ERNIE Mosesibayaka Rivera 12-lead EKG (interpreted by me) Time: 1105 Indication: Normal sinus rhythm Tracing visualized and Interpreted by me. Rhythm: Normal sinus rhythm Rate: 92 bpm QTc: 427 Morphology: No_significant_ST_elevations_or_depressions, No STEMI Impression: Normal_sinus_rhythm_without_significant_abnormality Rhythm Strip Diag. Results Rhythm Strip Time: 12:39 Rate: 90 Rhythm: NSR, no PVC's, no ectopy Chest X-Ray Diagnostic Results Chest X-Ray Diagnostic Results : ERNIE Rivera Chest X-Ray: Views: [ 1 ] view(s) Indication: Chest pain Findings: Normal heart size. Mediastinum normal. No infiltrate. Impression: No acute disease The X-ray(s) were independently viewed and interpreted contemporaneously Electronically signed by Kathryn pascual DO Reevaluation Time: 12:39 Last Vital Signs Date Time Temp Pulse Resp B/P (MAP) Pulse Ox O2 Delivery O2 Flow Rate FiO2 11/24/19 10:58 98.6 79 18 169/90 99 Room Air Status: improved Disposition: HOME, SELF-CARE Admit Decision Time: 12:39 Condition: Stable Scripts Ibuprofen* (MOTRIN*) 600 Mg Tablet 600 MG ORAL FOUR TIMES A DAY, #30 TAB 0 Refills Prov: Kathryn Mccain D.O. 11/24/19 Patient Instructions: Nonspecific Chest Pain Additional Instructions: Instructions for patient/stock sorter: Follow up with your physician in 1-2 days for referral to a commercial collector. Follow-up with your doctor sooner if your condition requires a more timely clinical reevaluation. Return to the emergency department immediately if you feel that your condition is worsening or if you have any new or concerning symptoms. Review your discharge instructions and take any prescriptions given as instructed. Kathryn Mccain D.O. Nov 24, 2019 12:40
--- NOTE | 2019-11-24 14:59 | Diagnostic Imaging Report ---
Indication: Chest pain Technique: One view of the chest Comparison: 08/21/2018 Findings: Lungs and pleural spaces are clear. Heart size is normal. No significant change Impression: No acute process
== END 2019-11-24 13:02 | disposition home or self-care (01) ==
LOC: EMR 11:05
DX: R07.89 Other chest pain (principal); F41.9 Anxiety disorder, unspecified; I10 Essential (primary) hypertension; E78.5 Hyperlipidemia, unspecified
CPT/HCPCS: 36415; 71045; 80053; 83880; 84484; 85025; 85379; 93005; Z7502; 99283

== ENCOUNTER 2020-04-19 11:30 | Emergency (ER) | payer MEDICAID ==
[~2020-04-19] VITALS: Ht 172.7 cm; Wt 99.8 kg
[~2020-04-19 11:30] MED LIST changes: +IBUPROFEN600 M1 ORAL
[2020-04-19] MEDS ORDERED: IBUPROFEN600 M1 ORAL (11:42)
--- NOTE | 2020-04-19 11:59 | NUR ---
ED Nurse Note: Pt walked into ED for chest pain 06/01 for 1 month. Pt says he recently came into ED for same issue. Pt has history of anxiety attacks. He is alert and orientedx4, ambulatory. EKG done. Pt set up on monitor. Pt has been seen by AGNES.
[2020-04-19 12:00] VITALS: BP 125/76
--- NOTE | 2020-04-19 12:00 | Emergency Room Report ---
History of Present Illness General Chief Complaint: Chest Pain Source: Patient Present Illness HPI 24-year-old male with history of hypertension, hyperlipidemia, anxiety, depression here with left-sided chest pain and remittent Ash[place] for several days. Patient says that his left lower chest feels "weird" intermittently on and off for last few days. Has also had a dry cough during this time. Said that he ate some food that was past its expiration date and that for 2 days he has been having some mild epigastric discomfort as well. Denies fevers, chills, palpitations, shortness of breath, back pain, other abdominal pain, nausea, vomiting, diarrhea, dysuria. Allergies: Coded Allergies: No Known Allergies (Unverified , 08/21/18) COVID-19 Screening Contact w/high risk pt: No Experienced COVID-19 symptoms?: No COVID-19 Testing performed AMBULANCE DRIVER: No Nursing Documentation-[facility] Past Medical History: No History, Except For Hx Hypertension: Yes Hx Asthma: Yes Hx Cancer: No Hx Gastrointestinal Problems: No Hx Neurological Problems: No Review of Systems All Other Systems: negative except mentioned in HPI Physical Exam Vital Signs Date Time Temp Pulse Resp B/P (MAP) Pulse Ox O2 Delivery O2 Flow Rate FiO2 04/19/20 11:43 98.2 92 18 132/82 (99) 100 Room Air Sp02 EP Interpretation: reviewed, normal General Appearance: no apparent distress, alert, non-toxic Head: normocephalic, atraumatic Eyes: bilateral eye normal inspection, bilateral eye PERRL ENT: hearing grossly normal, normal pharynx, no angioedema, normal voice Neck: full range of motion, supple/symm/no masses Respiratory: chest non-tender, lungs clear, normal breath sounds, speaking full sentences Cardiovascular #1: regular rate, rhythm, no edema Cardiovascular #2: 2+ carotid (R), 2+ carotid (L), 2+ radial (R), 2+ radial (L), 2+ dorsalis pedis (R), 2+ dorsalis pedis (L) Gastrointestinal: normal bowel sounds, non tender, soft, non-distended, no guarding, no rebound Rectal: deferred Genitourinary: normal inspection, no CVA tenderness Musculoskeletal: back normal, normal range of motion, gait/station normal, non- tender Neurologic: alert, motor strength/tone normal, oriented x3, sensory intact, responsive, speech normal Psychiatric: judgement/insight normal, memory normal, mood/affect normal, no suicidal/homicidal ideation Lymphatic: no adenopathy Medical Decision Making Diagnostic Impression: Primary Impression: Atypical chest pain ER Course EKG: NSR, no ischemia, intervals WNL. No ectopy. Rate 84 bpm. T wave inversions lead III, unchanged from previous EKG Rhythm strip: patient monitored for arrhythmias - no malignant dysrhythmias, runs of PVCs, nor pauses noted CXR: No infiltrate/effusion. Mediastinum within normal limits. No consolidations. No free air under the diaphragm. No bony abnormalities ddx: ACS, dissection, PE, PTX, pericarditis, myocarditis, musculoskeletal, GERD/GI conditions, anxiety 24-year-old male with a history of hypertension, hyperlipidemia, anxiety here with left-sided chest discomfort intermittently for several days to weeks. Patient was hemodynamically stable and neurovascular intact with a normal blood pressure in the emergency department. CBC and CMP were unremarkable. PERC negative. Troponin negative. Patient was asymptomatic in the emergency department. Told to follow-up with primary care. Discharged in stable condition. Last Vital Signs Date Time Temp Pulse Resp B/P (MAP) Pulse Ox O2 Delivery O2 Flow Rate FiO2 04/19/20 11:43 98.2 92 18 132/82 (99) 100 Room Air Scripts Dicyclomine Hcl* (DICYCLOMINE HCL*) 10 Mg Capsule 10 MG ORAL TID, #10 CAP Prov: Lan Vela M.D. 04/19/20 Ibuprofen* (MOTRIN*) 600 Mg Tablet 600 MG ORAL Q6H PRN for FOR PAIN, #20 TAB 0 Refills Prov: Lan Vela M.D. 04/19/20 Referrals: [facility] Patient Instructions: Chest Wall Pain Lan Vela M.D. Apr 19, 2020 12:00
--- NOTE | 2020-04-19 12:40 | Diagnostic Imaging Report ---
Procedure: XRAY Chest 1v Reason for study: Chest pain Comparison films: 11/24/2019. FINDINGS: A single one view chest is obtained. Vascularity is normal. The lung gong are clear bilaterally. Cardiac and mediastinal silhouette are within normal limits. CP angles are sharp. The bony thorax appear unremarkable. IMPRESSION: NO ACUTE CARDIOPULMONARY DISEASE.
[2020-04-19 13:20] LABS: BASOPHILS % (AUTO) 1.5 % (0.0-2.0); EOSINOPHILS % (AUTO) 1.5 % (0.0-3.0); HEMATOCRIT 49.3 % (42.0-52.0); HEMOGLOBIN 16.2 G/DL (14.2-18.0); LYMPHOCYTES % (AUTO) 34.6 % (20.0-45.0); MEAN CORPUSCULAR VOLUME 85 FL (80-99); MONOCYTES % (AUTO) 8.4 % (1.0-10.0); NEUTROPHILS % (AUTO) 54.1 % (45.0-75.0); PLATELET COUNT 232 K/UL (150-450); RED BLOOD COUNT 5.81 M/UL (4.70-6.10); RED CELL DISTRIBUTION WIDTH 12.1 % (11.6-14.8); WHITE BLOOD COUNT 11.3 K/UL (4.8-10.8)
[2020-04-19 13:44] LABS: ANION GAP 6 mmol/L (5-15); BLOOD UREA NITROGEN 11 mg/dL (7-18); CALCIUM 9.8 MG/DL (8.5-10.1); CARBON DIOXIDE 31 MMOL/L (21-32); CHLORIDE 104 MMOL/L (98-107); CREATININE 1.1 MG/DL (0.55-1.30); POTASSIUM 4.6 MMOL/L (3.5-5.1); SODIUM 141 MMOL/L (136-145)
[2020-04-19 13:50] LABS: ALANINE AMINOTRANSFERASE 33 U/L (12-78); ALBUMIN 4.1 G/DL (3.4-5.0); ALBUMIN/GLOBULIN RATIO 0.9 (1.0-2.7); ALKALINE PHOSPHATASE 67 U/L (46-116); ASPARTATE AMINO TRANSFERASE 18 U/L (15-37); BILIRUBIN,TOTAL 0.4 MG/DL (0.2-1.0)
[2020-04-19] MEDS ORDERED: DICYCLOMINE HCL10 MG ORAL (14:00)
[2020-04-19 14:10] VITALS: BP 131/72
--- NOTE | 2020-04-19 14:10 | NUR ---
ER DISCHARGE NOTE: Patient is cleared to be discharged per ERMD, pt is aox4, on room air, with stable vital signs. pt was given dc and prescription instructions, pt was able to verbalize understanding, pt id band and iv site removed without complications. pt is able to ambulate with steady gait. pt took all belongings.
== END 2020-04-19 14:10 | disposition home or self-care (01) ==
LOC: EMR 12:24
DX: R07.89 Other chest pain (principal); I10 Essential (primary) hypertension; E78.5 Hyperlipidemia, unspecified; J45.909 Unspecified asthma, uncomplicated
CPT/HCPCS: 36415; 71045; 80053; 84484; 85025; 93005; Z7502; 99284